=== PATIENT | male | born 1990 | race Caucasian/White ===

== ENCOUNTER 2017-06-12 16:36 | Inpatient (IN) ==
--- NOTE | 2017-06-12 17:09 | Emergency Department Note ---
Disposition Clinical Impression: Homicidal ideation Disposition: Admitted As Inpatient Forms: ED Satisfaction Letter Psych HPI - General Chief Complaint: ED Psychiatric Symptoms Stated Complaint: HI Time Seen by Provider: 06/12/17 17:07 Source: patient Mode of arrival: ambulatory Limitations: no limitations Nursing Notes Reviewed: Yes Vital Signs Reviewed: Yes - History of Present Illness Pt complaint: other (Homicidal thoughts) Onset (ago): month(s) (1) Duration: constant History of similar episodes: No Improves with: none Worsens with: none Alleged intoxication: No Associated Psychiatric Symptoms: homicidal ideation (States he was given a go back to work until his coworkers feeding quit his job) Traumatic symptoms: denies traumatic injury Treatments prior to arrival: none Self harm or harm to others: admits thoughts of harming others - Related Data Allergies Allergy/AdvReac Type Severity Reaction Status Date / Time sulfamethoxazole Allergy Hives Verified 06/12/17 16:39 [From Bactrim] trimethoprim [From Bactrim] Allergy Hives Verified 06/12/17 16:39 All systems ED: reviewed and negative except as stated. Constitutional: Denies: fever, chills Cardiovascular: Denies: chest pain Gastrointestinal: Denies: nausea, vomiting Past Medical History - Past Medical History Source: patient, obtained from family, nursing notes reviewed Medical history: Reports: asthma - Social History Smoking Status: Never smoker Smokeless Tobacco Status: No Alcohol use: Reports: occasionally Drug use: Reports: none Physical Exam - General Limitations: no limitations General appearance: alert, in no apparent distress - Head Head exam: atraumatic, normocephalic, normal inspection - Eye Eye exam: Present: normal appearance, PERRL, EOMI - Expanded Eye Exam Pupils: Left: reactive - ENT ENT exam: normal exam, normal oropharynx, mucous membranes moist - Expanded ENT Exam External ear exam: Present: normal external inspection Mouth exam: Present: normal external inspection Teeth exam: Present: normal inspection Throat exam: Present: normal inspection - Neck Neck exam: Present: normal inspection, full ROM, trachea midline - Chest Chest inspection: Present: normal inspection, symmetric chest wall rise - Respiratory Respiratory exam: Present: normal lung sounds bilaterally - Cardiovascular Cardiovascular exam: Present: regular rate, normal rhythm, normal heart sounds - Abdominal Exam Abdominal exam: Present: soft, Non-Tender. Absent: tenderness, distention, guarding, rebound, rigidity - Extremities Exam Extremities exam: Present: normal inspection, full ROM. Absent: tenderness, pedal edema - Expanded Upper Extremity Exam Shoulder exam: Present: normal inspection, full ROM Arm exam: Present: normal inspection, full ROM Elbow exam: Present: normal inspection, full ROM Forearm/Wrist exam: Present: normal inspection, full ROM Hand exam: Present: normal inspection, full ROM Vascular exam: Normal: capillary refill, radial pulse - Expanded Lower Extremity Exam Hip/Pelvis exam: Present: normal inspection, full ROM Upper leg exam: Present: normal inspection, full ROM Knee exam: Present: normal inspection, full ROM Lower leg exam: Present: normal inspection, full ROM Ankle exam: Present: normal inspection, full ROM Foot/toe exam: Present: normal inspection, full ROM Neurovascular/Tendon exam: Absent: motor deficit, sensory deficit, tendon deficit - Back Exam Back exam: Present: normal inspection, full ROM. Absent: tenderness - Neurological Exam Neurological exam: Present: alert, oriented X3 - Expanded Neurological Exam Patient oriented to: Present: person, place, time Coma Scale Eye Opening: Spontaneous Coma Scale Motor Response: Obeys Commands Coma Scale Verbal Response: Oriented Coma Scale Total: 15 - Psychiatric Psychiatric exam: Present: normal affect, homicidal ideation - Skin Skin exam: Present: warm, dry, intact, normal color Course Vital Signs Temperature 97.5 F L 06/12/17 16:37 Pulse Rate 82 06/12/17 16:37 Respiratory Rate 18 06/12/17 16:37 Blood Pressure 125/82 06/12/17 16:37 O2 Sat by Pulse Oximetry 100 06/12/17 16:37 Temperature 97.5 F L 06/12/17 16:37 Pulse Rate 82 06/12/17 16:37 Respiratory Rate 18 06/12/17 16:37 Blood Pressure 125/82 06/12/17 16:37 O2 Sat by Pulse Oximetry 100 06/12/17 16:37 Oxygen Delivery Oxygen Delivery Room Air Psych - Lab Data Result diagrams: 06/12/17 18:21 06/12/17 18:21 Lab Results 06/12/17 06/12/17 06/12/17 Range/Units 17:05 17:05 18:21 WBC 9.7 (4.3-11.1) K/mcL RBC 5.52 H (4.19-5.50) M/mcL Hgb 15.7 (12.9-16.9) g/dL Hct 45.4 (37.5-50.1) % MCV 82.2 L (83.0-100.0) fL MCH 28.4 (28.0-33.3) pg MCHC 34.6 (31.6-35.5) g/dL RDW 11.9 (11.5-14.5) % Plt Count 186 (140-400) K/mcL MPV 9.6 (9.4-12.4) fL Immature Gran % 0.2 (0-4) % Seg Neutrophils % 80.0 % Lymphocytes % 13.2 % Monocytes % 5.2 % Eosinophils % 1.2 % Basophils % 0.2 % Neutrophils # 7.8 (1.6-8.9) K/mcL Lymphocytes # 1.3 (0.6-4.6) K/mcL Monocytes # 0.5 (0.0-1.3) K/mcL Eosinophils # 0.1 (0.0-0.6) K/mcL Basophils # 0.0 (0.0-0.2) K/mcL Immature Plt Fraction 3.0 (1.1-6.1) % Sodium (136-145) mEq/L Potassium (3.5-4.5) mEq/L Chloride (98-109) mEq/L Carbon Dioxide (19-29) mEq/L BUN (8-26) mg/dL Creatinine (0.72-1.25) mg/dL Est GFR ( Amer) (> 60) Est GFR (Non-Af Amer) (> 60) BUN/Creatinine Ratio (6-26) Glucose (70-99) mg/dL Calculated Osmolality (280-300) Calcium (8.6-10.8) mg/dL Urine Color Yellow (Yellow) Urine Clarity Clear (Clear) Urine pH 6.0 (5.0-8.0) pH Units Ur Specific [place] 1.017 (1.010-1.025) Urine Protein Negative (Neg-Trace) mg/dL Urine Glucose (UA) Normal (Normal) mg/dL Urine Ketones Negative (Negative) mg/dL Urine Blood Negative (Negative) Urine Nitrite Negative (Negative) Urine Bilirubin Negative (Negative) Urine Urobilinogen Normal (Normal) mg/dL Ur Leukocyte Esterase Negative (Negative) Salicylates (15-30) mg/dL Urine Opiates Screen Negative (Dxytta=793) ng/mL Acetaminophen (10-30) mcg/mL Ur Barbiturates Screen Negative (Rntxel=883) ng/mL Ur Phencyclidine Scrn Negative (Cutoff=25) ng/mL Ur Amphetamines Screen Negative (Mkwwml=9350) ng/mL U Benzodiazepines Scrn Negative (Sswkel=072) ng/mL Urine Cocaine Screen Negative (Cutoff= 300) ng/mL U Marijuana (THC) Screen Negative (Cutoff = 50) ng/mL Ethyl Alcohol (0-10) mg/dL 06/12/17 Range/Units 18:21 WBC (4.3-11.1) K/mcL RBC (4.19-5.50) M/mcL Hgb (12.9-16.9) g/dL Hct (37.5-50.1) % MCV (83.0-100.0) fL MCH (28.0-33.3) pg MCHC (31.6-35.5) g/dL RDW (11.5-14.5) % Plt Count (140-400) K/mcL MPV (9.4-12.4) fL Immature Gran % (0-4) % Seg Neutrophils % % Lymphocytes % % Monocytes % % Eosinophils % % Basophils % % Neutrophils # (1.6-8.9) K/mcL Lymphocytes # (0.6-4.6) K/mcL Monocytes # (0.0-1.3) K/mcL Eosinophils # (0.0-0.6) K/mcL Basophils # (0.0-0.2) K/mcL Immature Plt Fraction (1.1-6.1) % Sodium 142 (136-145) mEq/L Potassium 4.1 (3.5-4.5) mEq/L Chloride 105 (98-109) mEq/L Carbon Dioxide 26 (19-29) mEq/L BUN 14 (8-26) mg/dL Creatinine 1.36 H (0.72-1.25) mg/dL Est GFR ( Amer) > 60 (> 60) Est GFR (Non-Af Amer) > 60 (> 60) BUN/Creatinine Ratio 10 (6-26) Glucose 128 H (70-99) mg/dL Calculated Osmolality 296 (280-300) Calcium 9.8 (8.6-10.8) mg/dL Urine Color (Yellow) Urine Clarity (Clear) Urine pH (5.0-8.0) pH Units Ur Specific [place] (1.010-1.025) Urine Protein (Neg-Trace) mg/dL Urine Glucose (UA) (Normal) mg/dL Urine Ketones (Negative) mg/dL Urine Blood (Negative) Urine Nitrite (Negative) Urine Bilirubin (Negative) Urine Urobilinogen (Normal) mg/dL Ur Leukocyte Esterase (Negative) Salicylates < 5.0 L (15-30) mg/dL Urine Opiates Screen (Ispcow=289) ng/mL Acetaminophen < 1.0 L (10-30) mcg/mL Ur Barbiturates Screen (Jyqscs=305) ng/mL Ur Phencyclidine Scrn (Cutoff=25) ng/mL Ur Amphetamines Screen (Puijel=5460) ng/mL U Benzodiazepines Scrn (Fxwvrq=215) ng/mL Urine Cocaine Screen (Cutoff= 300) ng/mL U Marijuana (THC) Screen (Cutoff = 50) ng/mL Ethyl Alcohol < 10 (0-10) mg/dL Psychiatric Medical Clearance - Medical Clearance Checklist Medical History: No Social History Section defined Current Vitals: Last Vital Signs Temp 97.5 F L 06/12/17 16:37 Pulse 82 06/12/17 16:37 Resp 18 06/12/17 16:37 BP 125/82 06/12/17 16:37 Pulse Ox 100 06/12/17 16:37 Psychiatric Lab Panel: Drug Levels and Toxicity 06/12/17 06/12/17 17:05 18:21 Urine Opiates Screen Negative Acetaminophen < 1.0 L Ur Barbiturates Screen Negative Ur Phencyclidine Scrn Negative Ur Amphetamines Screen Negative U Benzodiazepines Scrn Negative Urine Cocaine Screen Negative U Marijuana (THC) Screen Negative Ethyl Alcohol < 10 Abnormal Labs: Abnormal lab results RBC 5.52 M/mcL (4.19-5.50) H 06/12/17 18:21 MCV 82.2 fL (83.0-100.0) L 06/12/17 18:21 Creatinine 1.36 mg/dL (0.72-1.25) H 06/12/17 18:21 Glucose 128 mg/dL (70-99) H 06/12/17 18:21 Salicylates < 5.0 mg/dL (15-30) L 06/12/17 18:21 Acetaminophen < 1.0 mcg/mL (10-30) L 06/12/17 18:21 Statement of Medical Clearance: I have evaluated the patient, reviewed diagnostic information, and certify that the patient's medical condition is sufficiently stable that transfer to the psychiatric unit does not pose a significant risk of deterioration.
[2017-06-12 17:20] LABS: Bilirubin,Urine Negative (Negative); Blood,Urine Negative (Negative); Clarity,Urine Clear (Clear); Color,Urine Yellow (Yellow); Glucose,Urine (UA) Normal (Normal); Ketones,Urine Negative (Negative); Leukocyte Esterase,Urine Negative (Negative); Nitrite,Urine Negative (Negative); Protein,Urine Negative (Neg-Trace); Specific Gravity,Urine 1.017 (1.010-1.025); Urobilinogen,Urine Normal (Normal)
[2017-06-12 17:21] LABS: Amphetamine Screen,Urine Negative ng/mL (Cutoff=1000); Barbiturate Screen,Urine Negative ng/mL (Cutoff=200); Benzodiazepines Screen,Urine Negative ng/mL (Cutoff=200); Cannabinoid Screen,Urine Negative ng/mL (Cutoff = 50); Cocaine Screen,Urine Negative ng/mL (Cutoff= 300); Opiate Screen,Urine Negative ng/mL (Cutoff=300); Phencyclidine Screen,Urine Negative ng/mL (Cutoff=25)
[2017-06-12] MEDS ORDERED: ALPRAZolam 0.5 MG TABLET PO ONE (17:35)
[2017-06-12 18:27] LABS: Basophils % 0.2 %; Eosinophils # 0.1 K/mcL (0.0-0.6); Eosinophils % 1.2 %; Hematocrit 45.4 % (37.5-50.1); Hemoglobin 15.7 g/dL (12.9-16.9); Immature Granulocytes % 0.2 % (0-4); Lymphocytes # 1.3 K/mcL (0.6-4.6); Lymphocytes % 13.2 %; Mean Corpuscular HGB Conc 34.6 g/dL (31.6-35.5); Mean Corpuscular Hemoglobin 28.4 pg (28.0-33.3); Mean Corpuscular Volume 82.2 fL (83.0-100.0); Mean Platelet Volume 9.6 fL (9.4-12.4); Monocytes # 0.5 K/mcL (0.0-1.3); Monocytes % 5.2 %; Neutrophils # 7.8 K/mcL (1.6-8.9); Platelet Count 186 K/mcL (140-400); Red Blood Count 5.52 M/mcL (4.19-5.50); Red Cell Distribution Width 11.9 % (11.5-14.5)
[2017-06-12 18:40] LABS: BUN/Creatinine Ratio 10 (6-26); Blood Urea Nitrogen 14 mg/dL (8-26); Calcium 9.8 mg/dL (8.6-10.8); Carbon Dioxide 26 mEq/L (19-29); Chloride 105 mEq/L (98-109); Glucose 128 mg/dL (70-99); Osmolality,Calculated 296 (280-300); Potassium 4.1 mEq/L (3.5-4.5); Sodium 142 mEq/L (136-145); eGFR For African Americans > 60 (> 60); eGFR For Non-African Americans > 60 (> 60)
[2017-06-12 18:43] LABS: Acetaminophen < 1.0 mcg/mL (10-30); Ethanol < 10 mg/dL (0-10); Salicylate < 5.0 mg/dL (15-30)
[2017-06-12] MEDS ORDERED: Ibuprofen 400 MG TABLET PO PRN (22:20)
[2017-06-12] MEDS ORDERED: *HR* LORazepam 2 MG/ML VIAL IM PRN (22:20)
[2017-06-12] MEDS ORDERED: Haloperidol Lactate 5 MG/ML VIAL IM PRN (22:20)
[2017-06-12] MEDS ORDERED: hydrOXYzine pamoate 25 MG CAPSULE PO PRN (22:20)
[2017-06-12] MEDS ORDERED: *HR* LORazepam 1 MG TABLET PO PRN (22:20)
[2017-06-12] MEDS ORDERED: Mag Hydrox/Al Hydrox/Simeth 30 ML UDC PO PRN (22:20)
[2017-06-12] MEDS ORDERED: MOM Conc 10 ML UD.LIQ PO PRN (22:20)
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
[2017-06-13] MEDS: traZODone 50 MG TABLET PO PRN (21:13)
[2017-06-13] MEDS: OLANZapine 5 MG TAB.RAPDIS PO SCH (21:13)
[2017-06-14] MEDS: OLANZapine 5 MG TAB.RAPDIS PO SCH ×2 (08:13→20:50)
--- NOTE | 2017-06-14 14:23 | Psychiatry Progress Note ---
Date of Encounter: 06/14/17 Time of Encounter: 14:21 Subjective Interval history: Patient seen and evaluated this morning. Patient did not seem to be in any acute distress during the evaluation. Patient reports he is doing "fair". Patient reports that he slept very well last night and reports he has been eating well he has been here at the unit. When asked patient about his homicidal ideations patient reports "I actually have not had any since I have been here". Possibility that patient is minimizing his symptoms because he reports "it is boring here". Patient reports that overall from a scale from 1- 10 with 10 being the worst he feels that he has had about 5 or 6. Patient reports that he is not having any side effects to the medication and reports that he does not feel like it is making him too tired. Patient denied any thoughts of self-harm at the time of evaluation patient has been medication compliant staff did not report any significant issues with patient. Review of Systems Psychiatric: Reports: depression, anxiety, homicidal ideation, difficulty concentrating, mood swings, panic attacks Objective: Exam Patient orientation: Yes Person, Yes Time, Yes Place, Yes Circumstance Level of alertness: Alert Patient appearance: Appropriate Behavior: nervous, anxious, guarded, suspicious Eye contact: Minimal Contact Mood description: Anxious Affect description: flat Speech pattern: Normal rate, Normal rhythm Thought process: Intact Thought content: Yes Intact Judgment: Fair Insight: Partial Results - Vital Signs Vital Signs: Temp Pulse Resp BP Pulse Ox 97.4 F L 77 18 134/87 100 06/14/17 09:00 06/14/17 09:00 06/14/17 09:00 06/14/17 09:00 06/12/17 16:37 Assessment and Plan (1) Psychosis Current visit: Yes Status: Acute Plan: Continue hospitalization, Close observation, Encourage participation in unit milieu, Group Therapy, Monitor sleep, Monitor appetite, Family/Supportive other meeting Additional Plan: start zyprexa 5 mg BID Risks, benefits, side effects, alternatives discussed w/pt: Yes Patient agreeable to treatment: Yes Qualifiers: Psychosis type: unspecified psychosis type Qualified Code(s): F29 - Unspecified psychosis not due to a substance or known physiological condition Consult Discharge Plan - Plan Referrals: NONE,PCP [Primary Care Provider] -
[2017-06-14] MEDS: traZODone 50 MG TABLET PO PRN (20:49)
[2017-06-15] MEDS: OLANZapine 5 MG TAB.RAPDIS PO SCH ×2 (09:47→21:11)
--- NOTE | 2017-06-15 15:00 | Psychiatry Progress Note ---
Date of Encounter: 06/15/17 Time of Encounter: 14:58 Subjective Interval history: Patient seen and evaluated this morning patient was asleep in his room but was cooperative with evaluation. Patient reports that he is feeling "fine". Patient reports that he has not had any homicidal ideation since he has been here and admitted discussed with patient if there is any triggers at home patient was not able to state any triggers at home with discussed with patient if it would be helpful for patient to journal to see if any of those bad thoughts were coming back up and patient was agreeable to this patient reported no issues with his current medication denied any side effects of medication sleeping and eating good. Review of Systems Psychiatric: Reports: depression, anxiety, homicidal ideation, difficulty concentrating, mood swings, panic attacks Results - Vital Signs Vital Signs: Temp Pulse Resp BP Pulse Ox 97.7 F 69 16 123/74 100 06/15/17 09:00 06/15/17 09:00 06/15/17 09:00 06/15/17 09:00 06/12/17 16:37 Assessment and Plan (1) Psychosis Current visit: Yes Status: Acute Risks, benefits, side effects, alternatives discussed w/pt: Yes Patient agreeable to treatment: Yes Qualifiers: Psychosis type: unspecified psychosis type Qualified Code(s): F29 - Unspecified psychosis not due to a substance or known physiological condition Consult Discharge Plan - Plan Referrals: [facility] [Outside] - 07/12/17 9:30 am (The above appointment is with Dr. Kent, for outpatient psychiatric assessment and medication management services. Please arrive 30 minutes early for this appointment to complete paperwork. Please bring your insurance card, Social Security card and photo ID to this appointment. If you are unable to keep this appointment, 24 hour business notice of cancellation is expected. You are also scheduled to see Rafa Newberry on 07/15/2017 at 1:00pm for mental health counseling services. These are the first available appointments. You may contact the office regularly to check for cancellations that may allow you to be seen sooner. )
[2017-06-15] MEDS: traZODone 50 MG TABLET PO PRN (21:11)
[2017-06-16] MEDS: OLANZapine 5 MG TAB.RAPDIS PO SCH ×2 (08:23→20:24)
--- NOTE | 2017-06-16 14:37 | Psychiatry Progress Note ---
Date of Encounter: 06/16/17 Time of Encounter: 14:35 Subjective Interval history: Patient seen and evaluated this morning patient was calm and cooperative with the evaluation patient was in no acute distress. Patient reports that he feels he is doing much better since being here in the hospital and if he feels that the medication has been very helpful and reports he has not had any bad thoughts since he has started the medication denies any homicidal or suicidal ideations. Patient reports that he was able to come on his own to the emergency department and got help because he knew that if he came into the hospital that he would be able to get medication [place] otherwise it was [place], couple months to get in with outpatient psychiatrist. Patient reports that he is very happy he is on medication and feels that he is doing much better with the medication that he is on at this time patient denied any depression symptoms patient denied any psychotic symptoms patient reports that he does still have some mild anxiety per reports that it is only when he is in big crowds patient reports that he he has enjoyed his time here on the unit reports he has been very friendly and talking with a lot of the staff here. Patient reports his goals are to find another job and to get a schedule going again. Patient admits asked yesterday to write in a journal to see how his thoughts were this provider looked over patient's journal and he had not read many bad entries and everything was very soothing and not threatening. Patient reports that he was on Zoloft in the past since mother had talked about this pt reports he does not feel like he needs had an reports that he feels the Zyprexa is working well for him right now. Patient is hopeful to get discharged soon this provider explained to patient that she would speak with his mother to see how she felt he was doing. Review of Systems Psychiatric: Reports: depression, anxiety, homicidal ideation, difficulty concentrating, mood swings, panic attacks Objective: Exam Patient orientation: Yes Person Level of alertness: Alert Patient appearance: Appropriate Behavior: calm Psychomotor activity: Normal Eye contact: Maintains Eye Contact Mood description: Euthymic/stable Affect description: congruent with mood Speech pattern: Normal rate, Normal rhythm, Normal tone Speech volume: Normal Thought process: Intact Thought content: Yes Intact Judgment: Fair Insight: Partial Results - Vital Signs Vital Signs: Temp Pulse Resp BP Pulse Ox 97.2 F L 73 16 116/81 100 06/16/17 09:30 06/16/17 09:30 06/16/17 09:30 06/16/17 09:30 06/12/17 16:37 Assessment and Plan (1) Psychosis Current visit: Yes Status: Acute Risks, benefits, side effects, alternatives discussed w/pt: Yes Patient agreeable to treatment: Yes Qualifiers: Psychosis type: unspecified psychosis type Qualified Code(s): F29 - Unspecified psychosis not due to a substance or known physiological condition Consult Discharge Plan - Plan Referrals: [facility] [Outside] - 07/12/17 9:30 am (The above appointment is with Dr. Kent, for outpatient psychiatric assessment and medication management services. Please arrive 30 minutes early for this appointment to complete paperwork. Please bring your insurance card, Social Security card and photo ID to this appointment. If you are unable to keep this appointment, 24 hour business notice of cancellation is expected. You are also scheduled to see Rafa Newberry on 07/15/2017 at 1:00pm for mental health counseling services. These are the first available appointments. You may contact the office regularly to check for cancellations that may allow you to be seen sooner. )
[2017-06-16] MEDS: traZODone 50 MG TABLET PO PRN (20:24)
[2017-06-17] MEDS: OLANZapine 5 MG TAB.RAPDIS PO SCH (08:34)
[2017-06-17 09:23] VITALS: BP 120/80
--- NOTE | 2017-06-17 13:15 | Discharge Summary ---
Date of Encounter: 06/17/17 Time of Encounter: 13:13 Diagnosis - Discharge Diagnosis (1) Psychosis Status: Resolved Qualifiers: Psychosis type: unspecified psychosis type Qualified Code(s): F29 - Unspecified psychosis not due to a substance or known physiological condition Medications - Discharge Medications Prescriptions: Benztropine [Cogentin] 1 mg PO DAILY #30 tab OLANZapine [Zyprexa Zydis] 5 mg PO BID #60 traZODone [TraZODone] 50 mg PO HS PRN #30 tab PRN Reason: Insomnia Benztropine [Cogentin] 1 mg PO DAILY #30 tab 06/17/17 [Rx] OLANZapine [Zyprexa Zydis] 5 mg PO BID #60 06/17/17 [Rx] traZODone [TraZODone] 50 mg PO HS PRN #30 tab 06/17/17 [Rx] 3 Allergy/AdvReac Type Severity Reaction Status Date / Time sulfamethoxazole Allergy Hives Verified 06/12/17 16:39 [From Bactrim] trimethoprim [From Bactrim] Allergy Hives Verified 06/12/17 16:39 Provider Date of admission: 06/12/17 21:35 Primary care physician: PCP NONE Discharging clinician: Yennifer Ugalde Assessment and Plan - Patient/Caregiver Discharge Instructions Activity: resume usual activities as tolerated, return to work Diet: regular diet - Follow up Plan Follow up with: [facility] [Outside] - 07/12/17 9:30 am (The above appointment is with Dr. Kent, for outpatient psychiatric assessment and medication management services. Please arrive 30 minutes early for this appointment to complete paperwork. Please bring your insurance card, Social Security card and photo ID to this appointment. If you are unable to keep this appointment, 24 hour business notice of cancellation is expected. You are also scheduled to see Rafa Newberry on 07/15/2017 at 1:00pm for mental health counseling services. These are the first available appointments. You may contact the office daily to check for cancellations that may allow you to be seen sooner. You may also walk-in to the clinic anytime during regular business hours to be seen on crisis.) Overall status at discharge: Stable Disposition: Home, Self-Care Hospital Course Hospital course: Mr. Orozco is a 26 year old male who was admitted to the inpatient psychiatric unit for safety and stabilization due to patient having homicidal ideations not directed towards any particular person. Patient's home medications were continued and reviewed. Throughout the hospital coursept was started on zyprexa and cognetin and trazodone while in hospital after a day and a half for medication patient reports that he felt the Zyprexa was really helping with his thoughts he reports that since starting the medication he did not have any bad thoughts or homicidal ideations. Patient also reports that he brought himself voluntarily into the hospital because he knew that he needed help he also reports he knew that if he came into the hospital he would get on medication faster and that he would get it an outpatient appointment faster. Patient reports being grateful that he came to the hospital and that he got on medication and reports he he plans on continuing the Zyprexa because he feels that is helping him a lot. Patient did not exhibit any side effects to medication he was med compliant while he was on the unit patient participated in groups and was socializing with peers. Patient's sleep and appetite was fair. Patient denied any suicide or homicide ideations. Patient denied any thoughts of self-harm. Patient reports being interested in outpatient medication management and counseling. Patient was discussed for discharge due to patient not being a threat to himself or anyone else. 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 Patient will be returning home on discharge. Time spent discussing smoking cessation with patient: 3 to 10 minutes Does patient wish to continue nicotine replacement upon disc: No - Time Spent with Patient Total time spent providing and/or coordinating discharge services: Less than 30 minutes Quality - Multiple Antipsychotics Patient discharged on 2 or more antipsychotic medications: No Procedures - Procedures Procedures: Medication Management, Crisis Stabilization, Supportive Therapy, Group Therapy, Psychoeducational Therapy Mental Status Exam - Mental Status Exam Patient orientation: Yes Person, Yes Time, Yes Place, Yes Circumstance Level of alertness: Alert Patient appearance: Appropriate Psychomotor activity: Normal Eye contact: Maintains Eye Contact Mood description: Euthymic/stable Affect description: congruent with mood Speech pattern: Normal rate, Normal rhythm, Normal tone Speech Volume: Normal Thought process: Intact Thought Content: Yes Intact Judgment: Fair Insight: Full
== END 2017-06-17 15:00 | disposition home or self-care (01) | DRG 885 ==
LOC: EMEROO 16:36 → 1ANU 21:35
PROVIDERS: ADMIT Psychiatry & Neurology Psychiatry; ATTEND Psychiatry & Neurology Psychiatry

== ENCOUNTER 2017-10-25 14:02 | Inpatient (IN) ==
[2017-10-25] MEDS ORDERED: *HR* LORazepam 1 MG TABLET PO ONE (14:35)
--- NOTE | 2017-10-25 14:40 | Emergency Department Note ---
Disposition Clinical Impression: Suicidal ideation, Homicidal ideation Depression Qualifiers: Depression Type: unspecified Qualified Code(s): F32.9 - Major depressive disorder, single episode, unspecified Disposition: Admitted As Inpatient Condition: Fair Referrals: NONE,PCP [Primary Care Provider] - Forms: ED Satisfaction Letter Psych HPI - General Chief Complaint: ED Psychiatric Symptoms Stated Complaint: psych eval Time Seen by Provider: 10/25/17 14:35 Source: patient Nursing Notes Reviewed: Yes Vital Signs Reviewed: Yes - History of Present Illness HPI Narrative: 27-year-old male presents to the emergency department with suicidal and homicidal ideation. Patient says he has been getting worsening depression because he cannot hold a job down and he feels like he just wants to hurt himself and other people. He does not specify a plan. He says he is a cutter and has had that issue in the past. He denies fevers chills chest pain shortness of breath or other such complaints. He says been taking his psychiatric medications as prescribed. Patient also notes he has had visual and auditory hallucinations in the past about this episode. Pt complaint: suicidal ideation, feels depressed, medical clearance request If medical clearance, reason: psychiatric condition Onset (ago): day(s) Duration: constant History of similar episodes: Yes Improves with: none Worsens with: none Alleged intoxication: No Associated Psychiatric Symptoms: depression, suicidal ideation, homicidal ideation Associated symptoms: Reports: denies other symptoms Treatments prior to arrival: none Self harm or harm to others: admits thoughts of self harm, admits thoughts of harming others, denies having a plan - Related Data Previous Rx's Medication Instructions Recorded Benztropine [Cogentin] 1 mg PO DAILY #30 tab 06/17/17 OLANZapine [Zyprexa Zydis] 5 mg PO BID #60 06/17/17 traZODone [TraZODone] 50 mg PO HS PRN #30 tab 06/17/17 Allergies Allergy/AdvReac Type Severity Reaction Status Date / Time sulfamethoxazole Allergy Hives Verified 10/25/17 14:14 [From Bactrim] trimethoprim [From Bactrim] Allergy Hives Verified 10/25/17 14:14 All systems ED: reviewed and negative except as stated. Constitutional: Reports: as per HPI Eyes: Reports: as per HPI ENT ED: Reports: as per HPI Cardiovascular: Reports: as per HPI Respiratory: Reports: as per HPI Gastrointestinal: Reports: as per HPI Past Medical History - Past Medical History Attestation: Yes The following information was validated with the patient. Medical history: Reports: asthma Psychiatric history: Reports: anxiety, bipolar, panic disorder, PTSD, previous psychiatric hospitalization - Social History Smoking Status: Never smoker Smokeless Tobacco Status: No Alcohol use: Reports: none Drug use: Reports: none Physical Exam - General Limitations: no limitations General appearance: alert, in no apparent distress - Head Head exam: atraumatic - Eye Eye exam: Present: normal appearance - ENT ENT exam: normal exam, normal oropharynx - Neck Neck exam: Present: normal inspection, full ROM - Chest Chest inspection: Present: normal inspection - Respiratory Respiratory exam: Present: normal lung sounds bilaterally - Cardiovascular Cardiovascular exam: Present: regular rate, normal rhythm - Abdominal Exam Abdominal exam: Present: soft, Non-Tender - Extremities Exam Extremities exam: Present: normal inspection - Expanded Lower Extremity Exam Hip/Pelvis exam: Present: normal inspection - Neurological Exam Neurological exam: Present: alert, oriented X3 - Psychiatric Psychiatric exam: Present: depressed, anxious, flat affect, homicidal ideation, suicidal ideation - Skin Skin exam: Present: warm, dry, intact Course Vital Signs Temperature 98.8 F 10/25/17 14:11 Pulse Rate 100 10/25/17 14:11 Respiratory Rate 16 10/25/17 14:11 Blood Pressure 151/89 10/25/17 14:11 O2 Sat by Pulse Oximetry 98 10/25/17 14:11 Temperature 98.8 F 10/25/17 14:11 Pulse Rate 100 10/25/17 14:11 Respiratory Rate 16 10/25/17 14:11 Blood Pressure 151/89 10/25/17 14:11 O2 Sat by Pulse Oximetry 98 10/25/17 14:11 Oxygen Delivery Oxygen Delivery Room Air Psych - MDM Narrative Medical decision making narrative: We will do usual medical clearance for psychiatric department and will contact [facility]. He says he has been admitted there before. When evaluated patient and agreed to accept him as a patient here in the hospital. He was cleared for psychiatric treatment. - Lab Data Lab results reviewed: Yes I reviewed the patient's lab results. Result diagrams: 10/25/17 14:48 10/25/17 14:48 Lab Results 01/06/0410/25/17 10/25/17 Range/Units 14:43 14:43 14:48 WBC 8.4 (4.3-11.1) K/mcL RBC 5.49 (4.19-5.50) M/mcL Hgb 15.6 (12.9-16.9) g/dL Hct 44.7 (37.5-50.1) % MCV 81.4 L (83.0-100.0) fL MCH 28.4 (28.0-33.3) pg MCHC 34.9 (31.6-35.5) g/dL RDW 12.1 (11.5-14.5) % Plt Count 183 (140-400) K/mcL MPV 9.8 (9.4-12.4) fL Immature Gran % 0.1 (0-4) % Seg Neutrophils % 74.8 % Lymphocytes % 17.8 % Monocytes % 6.4 % Eosinophils % 0.8 % Basophils % 0.1 % Neutrophils # 6.3 (1.6-8.9) K/mcL Lymphocytes # 1.5 (0.6-4.6) K/mcL Monocytes # 0.5 (0.0-1.3) K/mcL Eosinophils # 0.1 (0.0-0.6) K/mcL Basophils # 0.0 (0.0-0.2) K/mcL Sodium (136-145) mEq/L Potassium (3.5-5.1) mEq/L Chloride (98-107) mEq/L Carbon Dioxide (23-29) mEq/L BUN (6-20) mg/dL Creatinine (0.70-1.30) mg/dL Est GFR ( Amer) (> 60) Est GFR (Non-Af Amer) (> 60) BUN/Creatinine Ratio (6-26) Glucose (70-105) mg/dL Calculated Osmolality (280-300) Calcium (8.6-10.3) mg/dL Urine Color Yellow (Yellow) Urine Clarity Clear (Clear) Urine pH 6.0 (5.0-8.0) pH Units Ur Specific [place] 1.023 (1.010-1.025) Urine Protein Negative (Neg-Trace) mg/dL Urine Glucose (UA) Normal (Normal) mg/dL Urine Ketones Negative (Negative) mg/dL Urine Blood Negative (Negative) Urine Nitrite Negative (Negative) Urine Bilirubin Negative (Negative) Urine Urobilinogen Normal (Normal) mg/dL Ur Leukocyte Esterase Negative (Negative) Ur Culture Indicated? NO (NO) Salicylates (15.0-30.0) mg/dL Urine Opiates Screen Negative (Dmwhst=908) ng/mL Acetaminophen (10-30) mcg/mL Ur Barbiturates Screen Negative (Dldkbq=482) ng/mL Ur Phencyclidine Scrn Negative (Cutoff=25) ng/mL Ur Amphetamines Screen Negative (Jpiaci=1191) ng/mL U Benzodiazepines Scrn Negative (Agpujv=172) ng/mL Urine Cocaine Screen Negative (Cutoff= 300) ng/mL U Marijuana (THC) Screen Negative (Cutoff = 50) ng/mL Ethyl Alcohol (0-10) mg/dL 10/25/17 Range/Units 14:48 WBC (4.3-11.1) K/mcL RBC (4.19-5.50) M/mcL Hgb (12.9-16.9) g/dL Hct (37.5-50.1) % MCV (83.0-100.0) fL MCH (28.0-33.3) pg MCHC (31.6-35.5) g/dL RDW (11.5-14.5) % Plt Count (140-400) K/mcL MPV (9.4-12.4) fL Immature Gran % (0-4) % Seg Neutrophils % % Lymphocytes % % Monocytes % % Eosinophils % % Basophils % % Neutrophils # (1.6-8.9) K/mcL Lymphocytes # (0.6-4.6) K/mcL Monocytes # (0.0-1.3) K/mcL Eosinophils # (0.0-0.6) K/mcL Basophils # (0.0-0.2) K/mcL Sodium 140 (136-145) mEq/L Potassium 3.7 (3.5-5.1) mEq/L Chloride 105 (98-107) mEq/L Carbon Dioxide 27 (23-29) mEq/L BUN 17 (6-20) mg/dL Creatinine 1.30 (0.70-1.30) mg/dL Est GFR ( Amer) > 60 (> 60) Est GFR (Non-Af Amer) > 60 (> 60) BUN/Creatinine Ratio 13 (6-26) Glucose 90 (70-105) mg/dL Calculated Osmolality 291 (280-300) Calcium 9.7 (8.6-10.3) mg/dL Urine Color (Yellow) Urine Clarity (Clear) Urine pH (5.0-8.0) pH Units Ur Specific [place] (1.010-1.025) Urine Protein (Neg-Trace) mg/dL Urine Glucose (UA) (Normal) mg/dL Urine Ketones (Negative) mg/dL Urine Blood (Negative) Urine Nitrite (Negative) Urine Bilirubin (Negative) Urine Urobilinogen (Normal) mg/dL Ur Leukocyte Esterase (Negative) Ur Culture Indicated? (NO) Salicylates < 5.0 L (15.0-30.0) mg/dL Urine Opiates Screen (Spqrpr=176) ng/mL Acetaminophen < 1.0 L (10-30) mcg/mL Ur Barbiturates Screen (Vmjcnq=460) ng/mL Ur Phencyclidine Scrn (Cutoff=25) ng/mL Ur Amphetamines Screen (Zvhhfe=7025) ng/mL U Benzodiazepines Scrn (Byuhlb=070) ng/mL Urine Cocaine Screen (Cutoff= 300) ng/mL U Marijuana (THC) Screen (Cutoff = 50) ng/mL Ethyl Alcohol < 10 (0-10) mg/dL Psychiatric Medical Clearance - Medical Clearance Checklist Does the patient have a NEW psychiatric condition?: No Any abnormalities indicating possible medical illness?: No Any history of medical issues?: No Medical History: Homicidal ideation (Acute) Psychosis (Resolved) Depression (Acute) Suicidal ideation (Acute) No Social History Section defined Any abnormal vital signs prior to transfer?: No Current Vitals: Last Vital Signs Temp 98.8 F 10/25/17 14:11 Pulse 100 10/25/17 14:11 Resp 16 10/25/17 14:11 BP 151/89 10/25/17 14:11 Pulse Ox 98 10/25/17 14:11 Is the patient intoxicated or cognitively impaired?: No Psychiatric Lab Panel: Drug Levels and Toxicity 10/25/17 10/25/17 14:43 14:48 Urine Opiates Screen Negative Acetaminophen < 1.0 L Ur Barbiturates Screen Negative Ur Phencyclidine Scrn Negative Ur Amphetamines Screen Negative U Benzodiazepines Scrn Negative Urine Cocaine Screen Negative U Marijuana (THC) Screen Negative Ethyl Alcohol < 10 Any abnormalities on the physical exam?: No Any abnormal labs?: No Abnormal Labs: Abnormal lab results MCV 81.4 fL (83.0-100.0) L 10/25/17 14:48 Salicylates < 5.0 mg/dL (15.0-30.0) L 10/25/17 14:48 Acetaminophen < 1.0 mcg/mL (10-30) L 10/25/17 14:48 Does the patient require durable medical equiptment?: No Is the patient ambulatory?: Yes Is the patient a fall risk?: No Any acute medical condition require Tx prior to transfer?: Yes Statement of Medical Clearance: I have evaluated the patient, reviewed diagnostic information, and certify that the patient's medical condition is sufficiently stable that transfer to the psychiatric unit does not pose a significant risk of deterioration.
[2017-10-25 14:53] LABS: Bilirubin,Urine Negative (Negative); Blood,Urine Negative (Negative); Clarity,Urine Clear (Clear); Color,Urine Yellow (Yellow); Glucose,Urine (UA) Normal (Normal); Ketones,Urine Negative (Negative); Leukocyte Esterase,Urine Negative (Negative); Nitrite,Urine Negative (Negative); Protein,Urine Negative (Neg-Trace); Specific Gravity,Urine 1.023 (1.010-1.025); Urobilinogen,Urine Normal (Normal)
[2017-10-25 14:56] LABS: Basophils % 0.1 %; Eosinophils # 0.1 K/mcL (0.0-0.6); Eosinophils % 0.8 %; Hematocrit 44.7 % (37.5-50.1); Hemoglobin 15.6 g/dL (12.9-16.9); Immature Granulocytes % 0.1 % (0-4); Lymphocytes # 1.5 K/mcL (0.6-4.6); Lymphocytes % 17.8 %; Mean Corpuscular HGB Conc 34.9 g/dL (31.6-35.5); Mean Corpuscular Hemoglobin 28.4 pg (28.0-33.3); Mean Corpuscular Volume 81.4 fL (83.0-100.0); Mean Platelet Volume 9.8 fL (9.4-12.4); Monocytes # 0.5 K/mcL (0.0-1.3); Monocytes % 6.4 %; Neutrophils # 6.3 K/mcL (1.6-8.9); Platelet Count 183 K/mcL (140-400); Red Blood Count 5.49 M/mcL (4.19-5.50); Red Cell Distribution Width 12.1 % (11.5-14.5); Segmented Neutrophils % 74.8 %
[2017-10-25 15:03] LABS: Amphetamine Screen,Urine Negative ng/mL (Cutoff=1000); Barbiturate Screen,Urine Negative ng/mL (Cutoff=200); Benzodiazepines Screen,Urine Negative ng/mL (Cutoff=200); Cannabinoid Screen,Urine Negative ng/mL (Cutoff = 50); Cocaine Screen,Urine Negative ng/mL (Cutoff= 300); Opiate Screen,Urine Negative ng/mL (Cutoff=300); Phencyclidine Screen,Urine Negative ng/mL (Cutoff=25)
[2017-10-25 15:10] LABS: Acetaminophen < 1.0 mcg/mL (10-30); Ethanol < 10 mg/dL (0-10); Salicylate < 5.0 mg/dL (15.0-30.0)
[2017-10-25 15:11] LABS: BUN/Creatinine Ratio 13 (6-26); Blood Urea Nitrogen 17 mg/dL (6-20); Calcium 9.7 mg/dL (8.6-10.3); Carbon Dioxide 27 mEq/L (23-29); Chloride 105 mEq/L (98-107); Glucose 90 mg/dL (70-105); Osmolality,Calculated 291 (280-300); Potassium 3.7 mEq/L (3.5-5.1); Sodium 140 mEq/L (136-145); eGFR For African Americans > 60 (> 60); eGFR For Non-African Americans > 60 (> 60)
[2017-10-25] MEDS ORDERED: Ibuprofen 400 MG TABLET PO PRN (18:35)
[2017-10-25] MEDS ORDERED: Mag Hydrox/Al Hydrox/Simeth 30 ML UDC PO PRN (18:35)
[2017-10-25] MEDS ORDERED: *HR* LORazepam 2 MG/ML VIAL IM PRN (18:35)
[2017-10-25] MEDS ORDERED: *HR* LORazepam 1 MG TABLET PO PRN (18:35)
[2017-10-25] MEDS ORDERED: hydrOXYzine pamoate 25 MG CAPSULE PO PRN (18:35)
[2017-10-25] MEDS ORDERED: Haloperidol Lactate 5 MG/ML VIAL IM PRN (18:35)
[2017-10-25] MEDS ORDERED: MOM Conc 10 ML UD.LIQ PO PRN (18:35)
[2017-10-25] MEDS: OLANZapine 5 MG TAB.RAPDIS PO SCH (21:37)
[2017-10-25] MEDS: traZODone 50 MG TABLET PO PRN (21:37)
[2017-10-26] MEDS: OLANZapine 5 MG TAB.RAPDIS PO SCH (09:09)
--- NOTE | 2017-10-26 12:42 | Psychiatry History & Physical ---
Date of Encounter: 10/26/17 Time of Encounter: 12:25 History of Present Illness Patient Stated Chief Complaint: "I'm homicidal and suicidal cause I can't hold a job" Medicare Admission Attestation: For traditional Medicare patients the provided hospital inpatient services are reasonable and necessary and in the case of services not specified as inpatient -only under 42 CFR 419.22 (n), that they are appropriately provided as inpatient services in accordance 42 CFR 412.3. For Critical Access Hospital the patient may reasonably be expected to be discharged or transferred to a hospital within 96 hours after admission to the Critical Access Hospital. Admitted From: Emergency Dept Plans for Post Hospital Care: Home History of Present Illness: Mr. Orozco is a 27 year old male who was admitted via the emergency department secondary to depression and having homicidal and suicidal thoughts. Patient denies any active plans to kill himself or to kill other people, but has vivid thoughts about people he could kill and how he could kill them. No specific person, but sees people and has these pervasive thoughts. He states is been getting worse in the last month to 6 weeks. He states his depression is getting worse as he cannot find a job that he can sustain. He states he has started to have financial problems and can't make his car payment. 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 He feels sad and isolates most of the time, not interacting or communicating with other people. He hears whispers telling him to kill people. This occurs especially when he is out in crowds with people all around him. He visualizes people dying and how he would kill them if he were the one bringing about their . He denies any visual hallucinations. He has issues with anxiety over the stress of his finances. He has no issues with impulsivity,gambling, staying up for days and days without sleep or need for sleep. He does not acknowledge or admit to reading other people's minds or any type of telepathy. He states the Zyprexa has helped him some, but in the last couple weeks, it is not help him as much as it used to. He states he has been on antidepressants in the past. Those antidepressant included Paxil, Zoloft, Celexa. He felt that the Paxil might have helped some, but is not sure. He has no active plans to kill himself or anybody else at this time. Past Med Surg Social Fam HX - Past Medical History Medical history: asthma - Past Psychiatric History Psychiatric history: Reports: prior suicide attempt (Put a gun to his head years ago but never pulled the trigger. ), previous psychiatric hospitalization , other (psychosis) Past psychiatric history details: Patient was admitted to in May 2017 for similar issues. He is a client at [facility]. Family psychiatric history: Yes (Father and brother, not sure what the Dx is) Family History of Suicide: None - Social History Smoking Status: Never smoker Smokeless Tobacco Status: No Alcohol use: none Drug use: none Occupational status: previously employed (He is having a difficult time " holding down a job" secondary to his anxiety) Current living situation: Home, With Family (in [place]) Activity Level: Independent ambulation Recent Out of Country Travel Within the Last 8 Weeks: No Exposure or Possible Exposure to Illness During Travel: No Medications & Allergies Benztropine [Cogentin] 1 mg PO DAILY #30 tab 06/17/17 [Rx] OLANZapine [Zyprexa Zydis] 5 mg PO BID #60 06/17/17 [Rx] Buspirone HCl [Buspar] 5 mg PO TID 10/25/17 [History] 3 Allergy/AdvReac Type Severity Reaction Status Date / Time sulfamethoxazole Allergy Hives Verified 10/25/17 14:14 [From Bactrim] trimethoprim [From Bactrim] Allergy Hives Verified 10/25/17 14:14 Mental Status Exam Patient orientation: Yes Person, Yes Time, Yes Place, Yes Circumstance Level of alertness: Alert Patient appearance: Appropriate Behavior: calm Psychomotor activity: Normal Eye contact: Maintains Eye Contact Mood description: Depressed Affect description: blunted Speech pattern: Normal rate, Normal rhythm, Monotone Speech volume: Normal Thought process: Slowed Thinking Thought content: Yes Suicidal ideation, Yes Homicidal ideation, Yes Preoccupation (with of others) Attention span: Capable of Focused Attention Memory description: Grossly Intact Patient reliability: Questionable Historian Intelligence estimate: Average Judgment: Fair Insight: Partial Exam - HEENT Head exam IM: Present: normocephalic Results - Vital Signs Vital signs: Temp Pulse Resp BP Pulse Ox 97.7 F 93 16 134/93 98 10/26/17 09:00 10/26/17 09:00 10/26/17 09:00 10/26/17 09:00 10/25/17 14:11 - Labs Labs: Laboratory Last Values WBC 8.4 K/mcL (4.3-11.1) 10/25/17 14:48 RBC 5.49 M/mcL (4.19-5.50) 10/25/17 14:48 Hgb 15.6 g/dL (12.9-16.9) 10/25/17 14:48 Hct 44.7 % (37.5-50.1) 10/25/17 14:48 MCV 81.4 fL (83.0-100.0) L 10/25/17 14:48 MCH 28.4 pg (28.0-33.3) 10/25/17 14:48 MCHC 34.9 g/dL (31.6-35.5) 10/25/17 14:48 RDW 12.1 % (11.5-14.5) 10/25/17 14:48 Plt Count 183 K/mcL (140-400) 10/25/17 14:48 MPV 9.8 fL (9.4-12.4) 10/25/17 14:48 Immature Gran % 0.1 % (0-4) 10/25/17 14:48 Seg Neutrophils % 74.8 % 10/25/17 14:48 Lymphocytes % 17.8 % 10/25/17 14:48 Monocytes % 6.4 % 10/25/17 14:48 Eosinophils % 0.8 % 10/25/17 14:48 Basophils % 0.1 % 10/25/17 14:48 Neutrophils # 6.3 K/mcL (1.6-8.9) 10/25/17 14:48 Lymphocytes # 1.5 K/mcL (0.6-4.6) 10/25/17 14:48 Monocytes # 0.5 K/mcL (0.0-1.3) 10/25/17 14:48 Eosinophils # 0.1 K/mcL (0.0-0.6) 10/25/17 14:48 Basophils # 0.0 K/mcL (0.0-0.2) 10/25/17 14:48 Sodium 140 mEq/L (136-145) 10/25/17 14:48 Potassium 3.7 mEq/L (3.5-5.1) 10/25/17 14:48 Chloride 105 mEq/L (98-107) 10/25/17 14:48 Carbon Dioxide 27 mEq/L (23-29) 10/25/17 14:48 BUN 17 mg/dL (6-20) 10/25/17 14:48 Creatinine 1.30 mg/dL (0.70-1.30) 10/25/17 14:48 Est GFR ( Amer) > 60 (> 60) 10/25/17 14:48 Est GFR (Non-Af Amer) > 60 (> 60) 10/25/17 14:48 BUN/Creatinine Ratio 13 (6-26) 10/25/17 14:48 Glucose 90 mg/dL (70-105) 10/25/17 14:48 Calculated Osmolality 291 (280-300) 10/25/17 14:48 Calcium 9.7 mg/dL (8.6-10.3) 10/25/17 14:48 Urine Color Yellow (Yellow) 10/25/17 14:43 Urine Clarity Clear (Clear) 10/25/17 14:43 Urine pH 6.0 pH Units (5.0-8.0) 10/25/17 14:43 Ur Specific [place] 1.023 (1.010-1.025) 10/25/17 14:43 Urine Protein Negative mg/dL (Neg-Trace) 10/25/17 14:43 Urine Glucose (UA) Normal mg/dL (Normal) 10/25/17 14:43 Urine Ketones Negative mg/dL (Negative) 10/25/17 14:43 Urine Blood Negative (Negative) 10/25/17 14:43 Urine Nitrite Negative (Negative) 10/25/17 14:43 Urine Bilirubin Negative (Negative) 10/25/17 14:43 Urine Urobilinogen Normal mg/dL (Normal) 10/25/17 14:43 Ur Leukocyte Esterase Negative (Negative) 10/25/17 14:43 Ur Culture Indicated? NO (NO) 10/25/17 14:43 Salicylates < 5.0 mg/dL (15.0-30.0) L 10/25/17 14:48 Urine Opiates Screen Negative ng/mL (Uckdth=945) 10/25/17 14:43 Acetaminophen < 1.0 mcg/mL (10-30) L 10/25/17 14:48 Ur Barbiturates Screen Negative ng/mL (Xjezws=610) 10/25/17 14:43 Ur Phencyclidine Scrn Negative ng/mL (Cutoff=25) 10/25/17 14:43 Ur Amphetamines Screen Negative ng/mL (Dwnwgg=0809) 10/25/17 14:43 U Benzodiazepines Scrn Negative ng/mL (Tdjxma=094) 10/25/17 14:43 Urine Cocaine Screen Negative ng/mL (Cutoff= 300) 10/25/17 14:43 U Marijuana (THC) Screen Negative ng/mL (Cutoff = 50) 10/25/17 14:43 Ethyl Alcohol < 10 mg/dL (0-10) 10/25/17 14:48 Assessment and Plan (1) Psychosis Current visit: Yes Status: Resolved Plan: Admit inpatient for safety and stabilization, Close observation, Suicide Precautions per unit protocol, Encourage participation in unit milieu, Group Therapy, Monitor sleep, Monitor appetite Risks, benefits, side effects, alternatives discussed w/pt: Yes (Increase his eveing Zyprexa to 10 mg targeting his psychotic thought) Patient agreeable to treatment: Yes Plans for Post Hospital Care: Home Estimated Length of Stay (Days): 5
[2017-10-26] MEDS: OLANZapine 10 MG TAB.RAPDIS PO SCH (20:45)
[2017-10-27] MEDS: OLANZapine 5 MG TAB.RAPDIS PO SCH (09:32)
--- NOTE | 2017-10-27 15:24 | Psychiatry Progress Note ---
Date of Encounter: 10/27/17 Time of Encounter: 15:15 Subjective Interval history: Patient tells me "I am doing all right. How are you doing". He explains to me that the increased dose Zyprexa at night, he believes, helped with the voices. He states they are much less intrusive. Right now he is not hearing anything. He states that he slept well at 12 hours and does not feel too tired today. He is still having some thoughts of but it is less. He is feeling more relaxed and less anxious; that in turn makes him feel less pessimistic and less depressed. He wants to continue to see how the medication works over the next couple days and see how his mood is stabilized on the medication. He denies any issues on the unit and he is trying to go to groups. Objective: Exam Patient orientation: Yes Person, Yes Place, Yes Circumstance Level of alertness: Alert Patient appearance: Well Groomed Behavior: anxious, guarded Psychomotor activity: Slowed Eye contact: Fleeting Contact Mood description: Depressed Affect description: blunted, flat Speech pattern: Normal rate, Normal rhythm, Other (tone is off as he has no inflection in his speech.) Speech volume: Soft/Quiet Thought process: Perseveration (less perseverative today on ) Thought content: Yes Suicidal ideation, Yes Homicidal ideation, Yes Preoccupation (with murder and ) Perceptual disturbances: Yes Auditory hallucinations Judgment: Limited Insight: Partial Results - Vital Signs Vital Signs: Temp Pulse Resp BP Pulse Ox 97.8 F 70 16 122/89 98 10/27/17 09:00 10/27/17 09:00 10/27/17 09:00 10/27/17 09:00 10/25/17 14:11 Assessment and Plan (1) Psychosis Current visit: Yes Status: Resolved Plan: Continue hospitalization, Close observation, Suicide Precautions per unit protocol, Encourage participation in unit milieu, Group Therapy, Monitor sleep Risks, benefits, side effects, alternatives discussed w/pt: Yes (Continue medication as ordered) Patient agreeable to treatment: Yes Qualifiers: Psychosis type: unspecified psychosis type Qualified Code(s): F29 - Unspecified psychosis not due to a substance or known physiological condition Consult Discharge Plan - Plan Referrals: [facility] [Outside] [facility] [Outside] - 11/23/17 4:15 pm (The above appointment is with for outpatient psychiatric assessment and medication management services. Please arrive 15 minutes early to complete paperwork. Please bring your insurance card, photo ID and medications in their original bottles. If you do not have insurance, bring proof of income to apply for the sliding fee scale. If you are unable to keep this appointment, 24 hour business notice of cancellation is expected. The above appointment(s) reflects first availability. You may contact the office regularly to check for cancellations that may allow you to be seen sooner.)
[2017-10-27] MEDS: OLANZapine 10 MG TAB.RAPDIS PO SCH (20:44)
[2017-10-27] MEDS: traZODone 50 MG TABLET PO PRN (20:45)
[2017-10-28] MEDS: OLANZapine 5 MG TAB.RAPDIS PO SCH (08:53)
--- NOTE | 2017-10-28 16:50 | Psychiatry Progress Note ---
Date of Encounter: 10/28/17 Time of Encounter: 16:40 Subjective Interval history: Patient tells me that he slept really well again last night. He states he is feeling much less anxious and depressed and feels the medication adjustment is working well. He denies any side effects of the medication. He is able to focus fine throughout the day in groups and better able to communicate with staff and peers. He states that he had a visit with his family and it went well. He states his depression is improving but he still has problems with anxiety. He states this occurs mostly when he is at work and in social situations. This contributes to him getting frustrated and overwhelmed and ultimately quitting or being fired. His energy and interest is improving. He states that is more focused on the future and denies having any suicidal or homicidal ideation. He discussed with me feeling awkward and socially like he "does not fit in" in most of life's situations. This is what makes it worse when he is at work and gets very anxious and is unable to cope with the stress at work around others. He denies any auditory or visual hallucinations. He has denies any visualizations of seeing people or people being murdered. He states his mind is much calmer is better able to focus and be around people in is more socially comfortable. Addendum: I called his mother after I sat down and talked with the patient. His mother states that she feels he is doing better and he is more back to baseline. She feels he is much better to return home safely. We talked about the possibility that he has also a diagnosis on the autism spectrum disorder. She has been unable to get him evaluated/tested. I told her I would talk to the social research assistant and try and find somebody to do further evaluations and testing on him. There is discussion of potentially applying for social security disability secondary to his inability to work and his financial issues. We also discussed diagnosis. He has psychotic symptoms which appear to be related to when he gets severely depressed. He currently has a diagnosis of psychosis. The psychosis disappears when he is feeling less depressed. I will put a rule out diagnosis of Major Depressive Disorder, recurrent, severe with psychotic features as a provisional rule out diagnosis. Objective: Exam Patient orientation: Yes Person, Yes Time, Yes Place Level of alertness: Alert Patient appearance: Appropriate, Well Groomed Behavior: cooperative, anxious (less ) Psychomotor activity: Normal Eye contact: Maintains Eye Contact Mood description: Euthymic/stable Affect description: congruent with mood Speech pattern: Normal rate, Normal rhythm, Normal tone, Other (His speech is still without emotion, but less quivering in his voice.) Speech volume: Normal Thought process: Goal Oriented Thought content: Yes Intact, Yes Preoccupation (no preoccupation with ) Judgment: Fair Insight: Partial Results - Vital Signs Vital Signs: Temp Pulse Resp BP Pulse Ox 98.1 F 96 16 117/86 98 10/28/17 10:56 10/28/17 10:56 10/28/17 10:56 10/28/17 10:56 10/25/17 14:11 Assessment and Plan (1) Psychosis Current visit: Yes Status: Resolved Plan: Continue hospitalization, Close observation, Suicide Precautions per unit protocol, Encourage participation in unit milieu, Group Therapy, Monitor sleep Risks, benefits, side effects, alternatives discussed w/pt: Yes (Continue zyprexa as written) Patient agreeable to treatment: Yes Qualifiers: Psychosis type: unspecified psychosis type Qualified Code(s): F29 - Unspecified psychosis not due to a substance or known physiological condition (2) Major depressive disorder, recurrent, severe with psychotic features Current visit: Yes Status: Acute Plan: Continue hospitalization, Close observation, Suicide Precautions per unit protocol, Encourage participation in unit milieu, Group Therapy, Monitor sleep Risks, benefits, side effects, alternatives discussed w/pt: Yes (Provisional diagnosis.) Consult Discharge Plan - Plan Referrals: [facility] [Outside] [facility] [Outside] - 11/23/17 4:15 pm (The above appointment is with for outpatient psychiatric assessment and medication management services. Please arrive 15 minutes early to complete paperwork. Please bring your insurance card, photo ID and medications in their original bottles. If you do not have insurance, bring proof of income to apply for the sliding fee scale. If you are unable to keep this appointment, 24 hour business notice of cancellation is expected. The above appointment(s) reflects first availability. You may contact the office regularly to check for cancellations that may allow you to be seen sooner.)
[2017-10-28] MEDS: traZODone 50 MG TABLET PO PRN (22:21)
[2017-10-28] MEDS: OLANZapine 10 MG TAB.RAPDIS PO SCH (22:21)
[2017-10-29] MEDS: OLANZapine 5 MG TAB.RAPDIS PO SCH (08:35)
--- NOTE | 2017-10-29 12:03 | Discharge Summary ---
Date of Encounter: 10/29/17 Time of Encounter: 11:40 Diagnosis - Discharge Diagnosis (1) Psychosis Status: Resolved Qualifiers: Psychosis type: unspecified psychosis type Qualified Code(s): F29 - Unspecified psychosis not due to a substance or known physiological condition (2) Major depressive disorder, recurrent, severe with psychotic features Status: Acute Medications - Discharge Medications Prescriptions: OLANZapine [Zyprexa Zydis] 10 mg PO HS 30 Days #30 tab.rapdis Benztropine [Cogentin] 1 mg PO DAILY #30 tab 06/17/17 [Rx] Buspirone HCl [Buspar] 5 mg PO TID 10/25/17 [History] OLANZapine [Zyprexa Zydis] 5 mg PO QAM tab.rapdis 10/29/17 [Rx] OLANZapine [Zyprexa Zydis] 10 mg PO HS 30 Days #30 tab.rapdis 10/29/17 [Rx] traZODone [TraZODone] 50 mg PO HS PRN tablet 10/29/17 [Rx] 3 Allergy/AdvReac Type Severity Reaction Status Date / Time sulfamethoxazole Allergy Hives Verified 10/25/17 14:14 [From Bactrim] trimethoprim [From Bactrim] Allergy Hives Verified 10/25/17 14:14 Provider Date of admission: 10/25/17 17:14 Primary care physician: PCP NONE Assessment and Plan - Patient/Caregiver Discharge Instructions Activity: resume usual activities as tolerated Diet: regular diet - Follow up Plan Follow up with: [facility] [Outside] - 11/15/17 11:00 am (The above appointment is with Tete Ervin for outpatient mental health counseling services.) [facility] [Outside] - 11/23/17 4:15 pm (The above appointment is with for outpatient psychiatric assessment and medication management services. Please arrive 15 minutes early to complete paperwork. Please bring your insurance card, photo ID and medications in their original bottles. If you do not have insurance, bring proof of income to apply for the sliding fee scale. If you are unable to keep this appointment, 24 hour business notice of cancellation is expected. The above appointment(s) reflects first availability. You may contact the office regularly to check for cancellations that may allow you to be seen sooner.) Functional capacity at discharge: independent ambulation Overall status at discharge: Stable Disposition: Home, Self-Care Hospital Course Hospital course: Mr. Orozco is a 27 year old male who tells me today "I slept really well last night. I feel really good." I talked with patient about his diagnosis at length. He acknowledges an issue with his mood and feeling depressed and it appears that the psychotic thought, in regards to hearing voices telling him to kill people and having thoughts of , occurs in direct relationship with his depression and when it gets worse. Otherwise, is not a predominant feature of his thought except when he gets anxious around a large group of people. He states that he is happy to be going to a new clinic to get his medication management completed. He had told the clinic, where he was going, about his increasing depression and the start of the thoughts. He did not feel that they heard him nor reacted appropriately in managing him. He states that the increase in Zyprexa has helped quite a bit. He is no longer having thoughts of , he is no longer having depressive ruminations, he is no longer having auditory or visual hallucinations. He denies any suicidal/homicidal ideation. He is more future oriented and feels hopeful about the future. He does talk about his frustration over finances. He is going to talk to someone at his new clinic about getting on social security disability to help out financially. 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 This will help him not worry about finances. Again, we talked further about his diagnosis and I believe his diagnosed more accurately to be major depressive disorder, recurrent, severe with psychotic features. I also discussed with him the possibility of having an autism spectrum disorder. I told him that I had spoken to his mom about it as well as talking to him about it and he agreed. He states that he is never fit in as a child; always socially awkward and never felt or reacted the same as other children. We have tried to arrange outpatient follow-up with neuropsychological testing agency to evaluate this further. He was pleased and thankful for that. Does patient wish to continue nicotine replacement upon disc: No (NA) - Time Spent with Patient Total time spent providing and/or coordinating discharge services: 25 min Less than 30 minutes Quality - Multiple Antipsychotics Patient discharged on 2 or more antipsychotic medications: No Procedures - Procedures Procedures: Medication Management, Crisis Stabilization, Supportive Therapy, Group Therapy, Psychoeducational Therapy Mental Status Exam - Mental Status Exam Patient orientation: Yes Person, Yes Time, Yes Place, Yes Circumstance Level of alertness: Alert Patient appearance: Appropriate, Well Groomed, Well-nourished Behavior: anxious (mildly) Psychomotor activity: Normal Eye contact: Maintains Eye Contact Mood description: Euthymic/stable Patient description of mood: Really good Affect description: congruent with mood Speech pattern: Monotone, Other (unusual pauses in pattern, monotone) Speech Volume: Normal Thought process: Intact, Logical, Linear, Goal Oriented Thought Content: Yes Intact Judgment: Good Insight: Partial
[2017-10-29 13:43] VITALS: BP 112/71
== END 2017-10-29 13:40 | disposition home or self-care (01) | DRG 885 ==
LOC: EMEROO 14:02 → 1ANU 17:14
PROVIDERS: ADMIT Psychiatry & Neurology Psychiatry; ATTEND Psychiatry & Neurology Psychiatry

== ENCOUNTER 2017-11-18 13:46 | Inpatient (IN) ==
[2017-11-18 14:25] LABS: Basophils % 0.3 %; Eosinophils # 0.1 K/mcL (0.0-0.6); Eosinophils % 1.4 %; Hematocrit 46.7 % (37.5-50.1); Hemoglobin 15.8 g/dL (12.9-16.9); Immature Granulocytes % 0.1 % (0-4); Lymphocytes # 1.2 K/mcL (0.6-4.6); Lymphocytes % 17.2 %; Mean Corpuscular HGB Conc 33.8 g/dL (31.6-35.5); Mean Corpuscular Volume 82.8 fL (83.0-100.0); Monocytes # 0.4 K/mcL (0.0-1.3); Monocytes % 6.1 %; Neutrophils # 5.4 K/mcL (1.6-8.9); Platelet Count 170 K/mcL (140-400); Red Blood Count 5.64 M/mcL (4.19-5.50); Red Cell Distribution Width 12.1 % (11.5-14.5); Segmented Neutrophils % 74.9 %
[2017-11-18 14:27] LABS: Bilirubin,Urine Negative (Negative); Blood,Urine Negative (Negative); Clarity,Urine Clear (Clear); Color,Urine Yellow (Yellow); Glucose,Urine (UA) Normal (Normal); Ketones,Urine Negative (Negative); Leukocyte Esterase,Urine Negative (Negative); Nitrite,Urine Negative (Negative); Protein,Urine Negative (Neg-Trace); Specific Gravity,Urine 1.019 (1.010-1.025); Urobilinogen,Urine Normal (Normal)
[2017-11-18 14:28] LABS: Amphetamine Screen,Urine Negative ng/mL (Cutoff=1000); Barbiturate Screen,Urine Negative ng/mL (Cutoff=200); Benzodiazepines Screen,Urine Negative ng/mL (Cutoff=200); Cannabinoid Screen,Urine Negative ng/mL (Cutoff = 50); Cocaine Screen,Urine Negative ng/mL (Cutoff= 300); Opiate Screen,Urine Negative ng/mL (Cutoff=300); Phencyclidine Screen,Urine Negative ng/mL (Cutoff=25)
[2017-11-18 14:38] LABS: BUN/Creatinine Ratio 10 (6-26); Blood Urea Nitrogen 11 mg/dL (6-20); Carbon Dioxide 27 mEq/L (23-29); Chloride 105 mEq/L (98-107); Glucose 89 mg/dL (70-105); Potassium 3.8 mEq/L (3.5-5.1); Sodium 142 mEq/L (136-145); eGFR For African Americans > 60 (> 60); eGFR For Non-African Americans > 60 (> 60)
[2017-11-18 14:39] LABS: Acetaminophen < 1.0 mcg/mL (10-30); Calcium 9.7 mg/dL (8.6-10.3); Ethanol < 10 mg/dL (0-10); Osmolality,Calculated 293 (280-300)
[2017-11-18 14:40] LABS: Salicylate < 5.0 mg/dL (15.0-30.0)
--- NOTE | 2017-11-18 14:41 | Emergency Department Note ---
Disposition Clinical Impression: Suicidal ideation, Homicidal ideation Disposition: Admitted As Inpatient Condition: Fair Time of Disposition: 14:42 Psych HPI - General Chief Complaint: ED Psychiatric Symptoms Stated Complaint: SI HI Time Seen by Provider: 11/18/17 13:48 Source: patient Mode of arrival: ambulatory Limitations: no limitations Nursing Notes Reviewed: Yes Vital Signs Reviewed: Yes - History of Present Illness HPI Narrative: 27-year-old male with history of depression as well as suicide and HI in the past reasons for evaluation of suicidal and homicidal ideations. Patient states he has had a plan to torture people as well as commit suicide on himself. Patient presents in the care of the mother states that this is part of his history has had required hospitalization for similar ideations. Patient denies any visual or auditory stimulation. Patient denies any drugs or alcohol use. Patient states even taking his medications as directed. - Related Data Home Medications Medication Instructions Recorded Confirmed Buspirone HCl [Buspar] 5 mg PO TID 10/25/17 11/18/17 Previous Rx's Medication Instructions Recorded Benztropine [Cogentin] 1 mg PO DAILY #30 tab 06/17/17 OLANZapine [Zyprexa Zydis] 5 mg PO QAM tab.rapdis 10/29/17 OLANZapine [Zyprexa Zydis] 10 mg PO HS 30 Days #30 tab.rapdis 10/29/17 traZODone [TraZODone] 50 mg PO HS PRN tablet 10/29/17 Allergies Allergy/AdvReac Type Severity Reaction Status Date / Time sulfamethoxazole Allergy Hives Verified 11/18/17 13:49 [From Bactrim] trimethoprim [From Bactrim] Allergy Hives Verified 11/18/17 13:49 All systems ED: reviewed and negative except as stated. Constitutional: Reports: as per HPI. Denies: fever Eyes: Reports: as per HPI ENT ED: Reports: as per HPI Cardiovascular: Reports: as per HPI. Denies: chest pain Respiratory: Reports: as per HPI. Denies: cough, dyspnea Gastrointestinal: Reports: as per HPI. Denies: abdominal pain, nausea, vomiting Genitourinary: Reports: as per HPI Musculoskeletal: Reports: as per HPI Integumentary: Reports: as per HPI Neurological: Reports: as per HPI Psychiatric: Reports: as per HPI Endocrine: Reports: as per HPI Hematological/Lymphatic: Reports: as per HPI Past Medical History - Past Medical History Source: patient, obtained from family Medical history: Reports: asthma, renal disease, other Psychiatric history: Reports: prior suicide attempt, previous psychiatric hospitalization, other - Social History Smoking Status: Never smoker Smokeless Tobacco Status: No Alcohol use: Reports: none Drug use: Reports: none Physical Exam - General Limitations: no limitations General appearance: alert, in no apparent distress - Head Head exam: atraumatic, normocephalic, normal inspection - Eye Eye exam: Present: normal appearance, PERRL, EOMI - ENT ENT exam: normal exam, normal oropharynx, mucous membranes moist - Neck Neck exam: Present: normal inspection, full ROM, trachea midline - Chest Chest inspection: Present: normal inspection, symmetric chest wall rise - Respiratory Respiratory exam: Present: normal lung sounds bilaterally. Absent: respiratory distress - Cardiovascular Cardiovascular exam: Present: regular rate, normal rhythm - Abdominal Exam Abdominal exam: Present: soft, Non-Tender - Extremities Exam Extremities exam: Present: normal inspection. Absent: pedal edema - Back Exam Back exam: Present: normal inspection - Neurological Exam Neurological exam: Present: alert, oriented X3, CN II-XII intact - Psychiatric Psychiatric exam: Present: flat affect - Skin Skin exam: Present: warm, dry, intact, normal color Course Course Narrative: Patient will require medical clearance and evaluated by psychiatry Vital Signs Temperature 98.9 F 11/18/17 13:49 Pulse Rate 100 11/18/17 13:49 Respiratory Rate 20 11/18/17 13:49 Blood Pressure 127/91 11/18/17 13:49 O2 Sat by Pulse Oximetry 99 11/18/17 13:49 Temperature 97.6 F 11/18/17 19:33 Pulse Rate 76 11/18/17 19:33 Respiratory Rate 14 11/18/17 19:33 Blood Pressure 122/89 11/18/17 19:33 O2 Sat by Pulse Oximetry 99 11/18/17 13:49 Oxygen Delivery Oxygen Delivery Room Air Psych - Lab Data Result diagrams: 11/18/17 14:15 11/18/17 14:15 Lab Results 11/18/17 11/18/17 11/18/17 Range/Units 14:05 14:05 14:15 WBC 7.2 (4.3-11.1) K/mcL RBC 5.64 H (4.19-5.50) M/mcL Hgb 15.8 (12.9-16.9) g/dL Hct 46.7 (37.5-50.1) % MCV 82.8 L (83.0-100.0) fL MCH 28.0 (28.0-33.3) pg MCHC 33.8 (31.6-35.5) g/dL RDW 12.1 (11.5-14.5) % Plt Count 170 (140-400) K/mcL MPV 10.0 (9.4-12.4) fL Immature Gran % 0.1 (0-4) % Seg Neutrophils % 74.9 % Lymphocytes % 17.2 % Monocytes % 6.1 % Eosinophils % 1.4 % Basophils % 0.3 % Neutrophils # 5.4 (1.6-8.9) K/mcL Lymphocytes # 1.2 (0.6-4.6) K/mcL Monocytes # 0.4 (0.0-1.3) K/mcL Eosinophils # 0.1 (0.0-0.6) K/mcL Basophils # 0.0 (0.0-0.2) K/mcL Sodium (136-145) mEq/L Potassium (3.5-5.1) mEq/L Chloride (98-107) mEq/L Carbon Dioxide (23-29) mEq/L BUN (6-20) mg/dL Creatinine (0.70-1.30) mg/dL Est GFR ( Amer) (> 60) Est GFR (Non-Af Amer) (> 60) BUN/Creatinine Ratio (6-26) Glucose (70-105) mg/dL Calculated Osmolality (280-300) Calcium (8.6-10.3) mg/dL Urine Color Yellow (Yellow) Urine Clarity Clear (Clear) Urine pH 7.0 (5.0-8.0) pH Units Ur Specific [place] 1.019 (1.010-1.025) Urine Protein Negative (Neg-Trace) mg/dL Urine Glucose (UA) Normal (Normal) mg/dL Urine Ketones Negative (Negative) mg/dL Urine Blood Negative (Negative) Urine Nitrite Negative (Negative) Urine Bilirubin Negative (Negative) Urine Urobilinogen Normal (Normal) mg/dL Ur Leukocyte Esterase Negative (Negative) Salicylates (15.0-30.0) mg/dL Urine Opiates Screen Negative (Sqinyf=578) ng/mL Acetaminophen (10-30) mcg/mL Ur Barbiturates Screen Negative (Ttddnr=786) ng/mL Ur Phencyclidine Scrn Negative (Cutoff=25) ng/mL Ur Amphetamines Screen Negative (Bwnnal=2357) ng/mL U Benzodiazepines Scrn Negative (Cxxgbp=433) ng/mL Urine Cocaine Screen Negative (Cutoff= 300) ng/mL U Marijuana (THC) Screen Negative (Cutoff = 50) ng/mL Ethyl Alcohol (0-10) mg/dL 11/18/17 Range/Units 14:15 WBC (4.3-11.1) K/mcL RBC (4.19-5.50) M/mcL Hgb (12.9-16.9) g/dL Hct (37.5-50.1) % MCV (83.0-100.0) fL MCH (28.0-33.3) pg MCHC (31.6-35.5) g/dL RDW (11.5-14.5) % Plt Count (140-400) K/mcL MPV (9.4-12.4) fL Immature Gran % (0-4) % Seg Neutrophils % % Lymphocytes % % Monocytes % % Eosinophils % % Basophils % % Neutrophils # (1.6-8.9) K/mcL Lymphocytes # (0.6-4.6) K/mcL Monocytes # (0.0-1.3) K/mcL Eosinophils # (0.0-0.6) K/mcL Basophils # (0.0-0.2) K/mcL Sodium 142 (136-145) mEq/L Potassium 3.8 (3.5-5.1) mEq/L Chloride 105 (98-107) mEq/L Carbon Dioxide 27 (23-29) mEq/L BUN 11 (6-20) mg/dL Creatinine 1.12 (0.70-1.30) mg/dL Est GFR ( Amer) > 60 (> 60) Est GFR (Non-Af Amer) > 60 (> 60) BUN/Creatinine Ratio 10 (6-26) Glucose 89 (70-105) mg/dL Calculated Osmolality 293 (280-300) Calcium 9.7 (8.6-10.3) mg/dL Urine Color (Yellow) Urine Clarity (Clear) Urine pH (5.0-8.0) pH Units Ur Specific [place] (1.010-1.025) Urine Protein (Neg-Trace) mg/dL Urine Glucose (UA) (Normal) mg/dL Urine Ketones (Negative) mg/dL Urine Blood (Negative) Urine Nitrite (Negative) Urine Bilirubin (Negative) Urine Urobilinogen (Normal) mg/dL Ur Leukocyte Esterase (Negative) Salicylates < 5.0 L (15.0-30.0) mg/dL Urine Opiates Screen (Fzjznt=549) ng/mL Acetaminophen < 1.0 L (10-30) mcg/mL Ur Barbiturates Screen (Fcajgj=975) ng/mL Ur Phencyclidine Scrn (Cutoff=25) ng/mL Ur Amphetamines Screen (Blixlf=7880) ng/mL U Benzodiazepines Scrn (Falssg=226) ng/mL Urine Cocaine Screen (Cutoff= 300) ng/mL U Marijuana (THC) Screen (Cutoff = 50) ng/mL Ethyl Alcohol < 10 (0-10) mg/dL Psychiatric Medical Clearance - Medical Clearance Checklist Does the patient have a NEW psychiatric condition?: No Any abnormalities indicating possible medical illness?: No Any history of medical issues?: No Medical History: Homicidal ideation (Acute) Psychosis (Resolved) Depression (Acute) Suicidal ideation (Acute) Major depressive disorder, recurrent, severe with psychotic features (Acute) No Social History Section defined Any abnormal vital signs prior to transfer?: No Current Vitals: Last Vital Signs Temp 97.6 F 11/18/17 19:33 Pulse 76 11/18/17 19:33 Resp 14 11/18/17 19:33 BP 122/89 11/18/17 19:33 Pulse Ox 99 11/18/17 13:49 Is the patient intoxicated or cognitively impaired?: No Psychiatric Lab Panel: Drug Levels and Toxicity 11/18/17 11/18/17 14:05 14:15 Urine Opiates Screen Negative Acetaminophen < 1.0 L Ur Barbiturates Screen Negative Ur Phencyclidine Scrn Negative Ur Amphetamines Screen Negative U Benzodiazepines Scrn Negative Urine Cocaine Screen Negative U Marijuana (THC) Screen Negative Ethyl Alcohol < 10 Any abnormalities on the physical exam?: No Any abnormal labs?: No Abnormal Labs: Abnormal lab results RBC 5.64 M/mcL (4.19-5.50) H 11/18/17 14:15 MCV 82.8 fL (83.0-100.0) L 11/18/17 14:15 Salicylates < 5.0 mg/dL (15.0-30.0) L 11/18/17 14:15 Acetaminophen < 1.0 mcg/mL (10-30) L 11/18/17 14:15 Does the patient require durable medical equiptment?: No Is the patient ambulatory?: No Is the patient a fall risk?: No Has the patient been medically cleared?: Yes Any acute medical condition require Tx prior to transfer?: No Attestation Statement - Attestation Attestation: I, Rickey Burk, examined this patient and my medical decision-making was reviewed with the CONTINUOUS STILL OPERATOR/PA/Advanced Practice Nurse/Resident Physician. I agree with the documented findings, disposition and treatment plan as described except to the extent set forth below. 27-year-old male presents emergency Department with concerns of suicidal ideation. He also states he had thoughts about torturing others prior to committing suicide. Patient was medically cleared emergency department and he will be the evaluated by behavioral health.
[2017-11-18] MEDS ORDERED: Acetaminophen 325 MG TABLET PO ONE (17:26)
[2017-11-18] MEDS ORDERED: Haloperidol Lactate 5 MG/ML VIAL IM PRN (19:26)
[2017-11-18] MEDS ORDERED: *HR* LORazepam 2 MG/ML VIAL IM PRN (19:26)
[2017-11-18] MEDS ORDERED: MOM Conc 10 ML UD.LIQ PO PRN (19:26)
[2017-11-18] MEDS ORDERED: *HR* LORazepam 1 MG TABLET PO PRN (19:26)
[2017-11-18] MEDS ORDERED: hydrOXYzine pamoate 25 MG CAPSULE PO PRN (19:26)
[2017-11-18] MEDS ORDERED: Mag Hydrox/Al Hydrox/Simeth 30 ML UDC PO PRN (19:26)
[2017-11-18] MEDS ORDERED: Acetaminophen 325 MG TABLET PO PRN (19:26)
[2017-11-18] MEDS: traZODone 50 MG TABLET PO PRN (21:23)
[2017-11-18] MEDS: OLANZapine 10 MG TAB.RAPDIS PO SCH (21:23)
[2017-11-19] MEDS: OLANZapine 5 MG TAB.RAPDIS PO SCH (08:47)
--- NOTE | 2017-11-19 14:23 | Psychiatry History & Physical ---
Date of Encounter: 11/19/17 Time of Encounter: 14:00 History of Present Illness Patient Stated Chief Complaint: "I couldn't do it." Medicare Admission Attestation: For traditional Medicare patients the provided hospital inpatient services are reasonable and necessary and in the case of services not specified as inpatient -only under 42 CFR 419.22 (n), that they are appropriately provided as inpatient services in accordance 42 CFR 412.3. For Critical Access Hospital the patient may reasonably be expected to be discharged or transferred to a hospital within 96 hours after admission to the Critical Access Hospital. Admitted From: Emergency Dept Plans for Post Hospital Care: Home History of Present Illness: Mr. Orozco is a 27 year old male who was readmitted to the psychiatric unit approximately 2 weeks after having been here in early October. (See October 26, 2017 H&P) Patient states that he tried to go back to work at [employer] where he had worked for 7 years.. He states that he was feeling so anxious and nervous around people that he ended up leaving. He states that he told his therapist about these facts yesterday, and the fact that he was having thoughts of hurting himself and again seeing large crowds of people . She told him to come to the emergency room to be admitted. He states he is not been taking his BuSpar as he does not find it helpful. He has a hard time feeling physically comfortable. He is anxious all the time and wants to talk about getting back on his Paxil. He had taken Paxil for an extended period of time targeting his depression and anxiety, previously. I explained to him that the anxiety could potentially be a side effect of the Zyprexa, which we talked about before. He had started Cogentin in the evening and I advised him to give the trial of taking Cogentin during the day to see if that helped decrease his underlying frustration and anxious feeling. He was agreeable to doing this. He denies any active thoughts of wanting to kill himself or anybody else at this time. He states is very frustrated and continues to worry about finances and feels that he is a failure. And this feeling he is a failure makes him have thoughts of wanting to kill himself. Past Med Surg Social Fam HX - Past Medical History Medical history: asthma, renal disease, other - Past Psychiatric History Psychiatric history: Reports: depression, prior suicide attempt, previous psychiatric hospitalization Family psychiatric history: Yes Family History of Suicide: None - Social History Smoking Status: Never smoker Smokeless Tobacco Status: No Alcohol use: none Drug use: none Occupational status: employed Current living situation: Home - Independent Activity Level: Independent ambulation Recent Out of Country Travel Within the Last 8 Weeks: No Exposure or Possible Exposure to Illness During Travel: No Medications & Allergies Benztropine [Cogentin] 1 mg PO DAILY #30 tab 06/17/17 [Rx] Buspirone HCl [Buspar] 5 mg PO TID 10/25/17 [History] OLANZapine [Zyprexa Zydis] 5 mg PO QAM tab.rapdis 10/29/17 [Rx] OLANZapine [Zyprexa Zydis] 10 mg PO HS 30 Days #30 tab.rapdis 10/29/17 [Rx] traZODone [TraZODone] 50 mg PO HS PRN tablet 10/29/17 [Rx] 3 Allergy/AdvReac Type Severity Reaction Status Date / Time sulfamethoxazole Allergy Hives Verified 11/18/17 13:49 [From Bactrim] trimethoprim [From Bactrim] Allergy Hives Verified 11/18/17 13:49 Mental Status Exam Patient orientation: Yes Person, Yes Time, Yes Place, Yes Circumstance Level of alertness: Sedated Patient appearance: Unkempt Behavior: anxious Psychomotor activity: Slowed Eye contact: Maintains Eye Contact Mood description: Anxious Affect description: congruent with mood Speech pattern: Normal rate, Normal rhythm, Normal tone Speech volume: Normal Thought process: Goal Oriented Thought content: Yes Intact Attention span: Capable of Focused Attention Memory description: Grossly Intact Patient reliability: Reliable Historian Intelligence estimate: Average Judgment: Fair Insight: Partial Exam - HEENT Head exam IM: Present: atraumatic Results - Vital Signs Vital signs: Temp Pulse Resp BP Pulse Ox 97.6 F 114 16 141/98 99 11/19/17 09:00 11/19/17 09:00 11/19/17 09:00 11/19/17 09:00 11/18/17 13:49 - Labs Labs: Laboratory Last Values WBC 7.2 K/mcL (4.3-11.1) 11/18/17 14:15 RBC 5.64 M/mcL (4.19-5.50) H 11/18/17 14:15 Hgb 15.8 g/dL (12.9-16.9) 11/18/17 14:15 Hct 46.7 % (37.5-50.1) 11/18/17 14:15 MCV 82.8 fL (83.0-100.0) L 11/18/17 14:15 MCH 28.0 pg (28.0-33.3) 11/18/17 14:15 MCHC 33.8 g/dL (31.6-35.5) 11/18/17 14:15 RDW 12.1 % (11.5-14.5) 11/18/17 14:15 Plt Count 170 K/mcL (140-400) 11/18/17 14:15 MPV 10.0 fL (9.4-12.4) 11/18/17 14:15 Immature Gran % 0.1 % (0-4) 11/18/17 14:15 Seg Neutrophils % 74.9 % 11/18/17 14:15 Lymphocytes % 17.2 % 11/18/17 14:15 Monocytes % 6.1 % 11/18/17 14:15 Eosinophils % 1.4 % 11/18/17 14:15 Basophils % 0.3 % 11/18/17 14:15 Neutrophils # 5.4 K/mcL (1.6-8.9) 11/18/17 14:15 Lymphocytes # 1.2 K/mcL (0.6-4.6) 11/18/17 14:15 Monocytes # 0.4 K/mcL (0.0-1.3) 11/18/17 14:15 Eosinophils # 0.1 K/mcL (0.0-0.6) 11/18/17 14:15 Basophils # 0.0 K/mcL (0.0-0.2) 11/18/17 14:15 Sodium 142 mEq/L (136-145) 11/18/17 14:15 Potassium 3.8 mEq/L (3.5-5.1) 11/18/17 14:15 Chloride 105 mEq/L (98-107) 11/18/17 14:15 Carbon Dioxide 27 mEq/L (23-29) 11/18/17 14:15 BUN 11 mg/dL (6-20) 11/18/17 14:15 Creatinine 1.12 mg/dL (0.70-1.30) 11/18/17 14:15 Est GFR ( Amer) > 60 (> 60) 11/18/17 14:15 Est GFR (Non-Af Amer) > 60 (> 60) 11/18/17 14:15 BUN/Creatinine Ratio 10 (6-26) 11/18/17 14:15 Glucose 89 mg/dL (70-105) 11/18/17 14:15 Calculated Osmolality 293 (280-300) 11/18/17 14:15 Calcium 9.7 mg/dL (8.6-10.3) 11/18/17 14:15 Urine Color Yellow (Yellow) 11/18/17 14:05 Urine Clarity Clear (Clear) 11/18/17 14:05 Urine pH 7.0 pH Units (5.0-8.0) 11/18/17 14:05 Ur Specific [place] 1.019 (1.010-1.025) 11/18/17 14:05 Urine Protein Negative mg/dL (Neg-Trace) 11/18/17 14:05 Urine Glucose (UA) Normal mg/dL (Normal) 11/18/17 14:05 Urine Ketones Negative mg/dL (Negative) 11/18/17 14:05 Urine Blood Negative (Negative) 11/18/17 14:05 Urine Nitrite Negative (Negative) 11/18/17 14:05 Urine Bilirubin Negative (Negative) 11/18/17 14:05 Urine Urobilinogen Normal mg/dL (Normal) 11/18/17 14:05 Ur Leukocyte Esterase Negative (Negative) 11/18/17 14:05 Salicylates < 5.0 mg/dL (15.0-30.0) L 11/18/17 14:15 Urine Opiates Screen Negative ng/mL (Nsggjx=300) 11/18/17 14:05 Acetaminophen < 1.0 mcg/mL (10-30) L 11/18/17 14:15 Ur Barbiturates Screen Negative ng/mL (Cazpue=054) 11/18/17 14:05 Ur Phencyclidine Scrn Negative ng/mL (Cutoff=25) 11/18/17 14:05 Ur Amphetamines Screen Negative ng/mL (Hutyti=0017) 11/18/17 14:05 U Benzodiazepines Scrn Negative ng/mL (Awnxnw=698) 11/18/17 14:05 Urine Cocaine Screen Negative ng/mL (Cutoff= 300) 11/18/17 14:05 U Marijuana (THC) Screen Negative ng/mL (Cutoff = 50) 11/18/17 14:05 Ethyl Alcohol < 10 mg/dL (0-10) 11/18/17 14:15 Assessment and Plan (1) Major depressive disorder, recurrent, severe with psychotic features Current visit: No Status: Acute Plan: Admit inpatient for safety and stabilization, Suicide Precautions per unit protocol, Encourage participation in unit milieu, Group Therapy, Monitor sleep Risks, benefits, side effects, alternatives discussed w/pt: Yes (Start Paxil 20 mg po qd, D/C Buspar, add cogentin) Patient agreeable to treatment: Yes Plans for Post Hospital Care: Home Estimated Length of Stay (Days): 7
[2017-11-19] MEDS: OLANZapine 10 MG TAB.RAPDIS PO SCH (20:33)
[2017-11-19] MEDS: traZODone 50 MG TABLET PO PRN (20:33)
[2017-11-20] MEDS: OLANZapine 5 MG TAB.RAPDIS PO SCH (08:50)
--- NOTE | 2017-11-20 13:24 | Psychiatry Progress Note ---
Date of Encounter: 11/20/17 Time of Encounter: 13:15 Subjective Interval history: Patient was willing to come out of his room to talk to me. He came down to my office. I asked him how he was doing and he stated "pretty good". He denied any side effects of restarting the Paxil. He states that it is cold in his room , but he stays covered up underneath the blankets to stay warm. I asked him if he needed any extra clothing or covering, he stated "no, the blankets helped just fine". He told me that he slept proximally 10 hours the night before without nightmare or difficulty. He told me that he is eating fine. He states that he is feeling calmer. Denies side effects of any of the other medications. He denies any suicidal homicidal ideation. He denies any auditory or visual hallucinations. He denies any intrusive thoughts of people dying or mass murders which had previously been an issue that he reported to his outpatient psychologist. He denied any safety issues on the unit. He was encouraged to participate on the unit and interact as he could with staff and other patients. He said he would try. Objective: Exam Patient orientation: Yes Person, Yes Time, Yes Place, Yes Circumstance Level of alertness: Sedated (mildy) Patient appearance: Appropriate, Well Groomed Behavior: anxious Psychomotor activity: Normal Eye contact: Maintains Eye Contact Mood description: Depressed Affect description: congruent with mood Speech pattern: Normal rate, Normal rhythm, Monotone Speech volume: Normal Thought process: Intact, Linear Thought content: Yes Intact Judgment: Fair Insight: Partial Results - Vital Signs Vital Signs: Temp Pulse Resp BP Pulse Ox 99.0 F 75 16 131/75 99 11/20/17 09:00 11/20/17 09:00 11/20/17 09:00 11/20/17 09:00 11/18/17 13:49 Assessment and Plan (1) Major depressive disorder, recurrent, severe with psychotic features Current visit: No Status: Acute Plan: Continue hospitalization, Close observation, Suicide Precautions per unit protocol, Encourage participation in unit milieu, Group Therapy, Monitor sleep, Monitor appetite Risks, benefits, side effects, alternatives discussed w/pt: Yes (Continue Paxil 20 mg po qd and AM Cogentin) Patient agreeable to treatment: Yes Consult Discharge Plan - Plan Referrals: [facility] [employer] [facility] [place] [Outside] - 11/23/17 4:15 pm (The above appointment is with Dr. Mayra Sy for outpatient psychiatric assessment and medication management services. Please arrive 15 minutes early to complete paperwork. Please bring your insurance card, photo ID and medications in their original bottles. If you do not have insurance, bring proof of income to apply for the sliding fee scale. If you are unable to keep this appointment, 24 hour business notice of cancellation is expected. The above appointment(s) reflects first availability. You may contact the office regularly to check for cancellations that may allow you to be seen sooner.)
[2017-11-20] MEDS: OLANZapine 10 MG TAB.RAPDIS PO SCH (20:40)
[2017-11-20] MEDS: traZODone 50 MG TABLET PO PRN (20:40)
[2017-11-21] MEDS: OLANZapine 5 MG TAB.RAPDIS PO SCH (08:37)
--- NOTE | 2017-11-21 13:54 | Psychiatry Progress Note ---
Date of Encounter: 11/21/17 Time of Encounter: 13:30 Subjective Interval history: "I'm pretty good." He states he is sleeping fine. He denies any suicidal/ homicidal ideation. He is not having intrusive thoughts about killing people or people dying. No auditory or visual hallucinations. He feels hopeful having started the Paxil and has noticed a decrease in his anxiety. He does not feel drugged out or slow on the Paxil. He feels better and more hopefully. He is concerned about going back to his job and failing again. Not sure he could handle the rejection. He is hopeful he will get disability to help him out financially and give him relief from his stress. Objective: Exam Patient orientation: Yes Person, Yes Time, Yes Place, Yes Circumstance Level of alertness: Alert Patient appearance: Appropriate Behavior: anxious (mildly) Psychomotor activity: Normal Eye contact: Intense Contact Mood description: Depressed Affect description: congruent with mood Speech pattern: Normal rate, Normal rhythm, Normal tone Speech volume: Normal Thought process: Linear Judgment: Fair Insight: Partial Results - Vital Signs Vital Signs: Temp Pulse Resp BP Pulse Ox 97.8 F 83 16 140/97 99 11/21/17 08:48 11/21/17 08:48 11/21/17 08:48 11/21/17 08:48 11/18/17 13:49 Assessment and Plan (1) Major depressive disorder, recurrent, severe with psychotic features Current visit: No Status: Acute Plan: Continue hospitalization, Close observation, Suicide Precautions per unit protocol, Encourage participation in unit milieu, Group Therapy, Monitor sleep Risks, benefits, side effects, alternatives discussed w/pt: Yes (Continue Paxil 20 mg po qd and AM Cogentin) Patient agreeable to treatment: Yes Consult Discharge Plan - Plan Referrals: [facility] [Outside] - 11/23/17 4:15 pm (The above appointment is with Dr. Mayra Sy for outpatient psychiatric assessment and medication management services. Please arrive 15 minutes early to complete paperwork. Please bring your insurance card, photo ID and medications in their original bottles. If you do not have insurance, bring proof of income to apply for the sliding fee scale. If you are unable to keep this appointment, 24 hour business notice of cancellation is expected. The above appointment(s) reflects first availability. You may contact the office regularly to check for cancellations that may allow you to be seen sooner.)
[2017-11-21] MEDS: OLANZapine 10 MG TAB.RAPDIS PO SCH (20:17)
[2017-11-21] MEDS: traZODone 50 MG TABLET PO PRN (20:17)
[2017-11-22] MEDS: OLANZapine 5 MG TAB.RAPDIS PO SCH (09:06)
--- NOTE | 2017-11-22 12:36 | Psychiatry Progress Note ---
Date of Encounter: 11/22/17 Time of Encounter: 12:30 Subjective Interval history: When I met with the patient today he denied having any side effects of his medications and told me that he was feeling "pretty good". He denied having any more anxiety like he was having upon admission. He still is frustrated about his financial/job situation, but it is not obsessing about it. He is able to relax with it. He denies any thoughts of hurting himself or anybody else. He denies any intrusive thoughts about . He denies any auditory or visual hallucinations. He states he sleeping well and eating well. He states he feels a little slow and foggy at times since starting the Paxil, but is able to maintain conversation and able to focus without an issue. He is interacting and socializing on the unit with peers and staff. Objective: Exam Patient orientation: Yes Person, Yes Time, Yes Place, Yes Circumstance Level of alertness: Alert Patient appearance: Appropriate, Well Groomed, Well-nourished Behavior: calm Psychomotor activity: Normal Eye contact: Maintains Eye Contact Mood description: Euthymic/stable Patient description of mood: "pretty good" Affect description: congruent with mood Speech pattern: Normal rate, Normal rhythm, Monotone Speech volume: Normal Thought process: Intact, Linear, Goal Oriented Thought content: Yes Intact Judgment: Good Insight: Full Results - Vital Signs Vital Signs: Temp Pulse Resp BP Pulse Ox 97.6 F 77 18 139/87 99 11/22/17 09:00 11/22/17 09:00 11/22/17 09:00 11/22/17 09:00 11/18/17 13:49 Assessment and Plan (1) Major depressive disorder, recurrent, severe with psychotic features Current visit: No Status: Acute Plan: Continue hospitalization, Close observation, Group Therapy, Monitor sleep Risks, benefits, side effects, alternatives discussed w/pt: Yes (Continue Paxil 20 mg po qd and AM Cogentin) Patient agreeable to treatment: Yes Consult Discharge Plan - Plan Referrals: Satish Boykin [facility] [Outside] - 11/23/17 4:15 pm (The above appointment is with Dr. Mayra Sy for outpatient psychiatric assessment and medication management services. Please arrive 15 minutes early to complete paperwork. Please bring your insurance card, photo ID and medications in their original bottles. If you do not have insurance, bring proof of income to apply for the sliding fee scale. If you are unable to keep this appointment, 24 hour business notice of cancellation is expected. The above appointment(s) reflects first availability. You may contact the office regularly to check for cancellations that may allow you to be seen sooner.)
[2017-11-22] MEDS: traZODone 50 MG TABLET PO PRN (20:59)
[2017-11-22] MEDS: OLANZapine 10 MG TAB.RAPDIS PO SCH (20:59)
[2017-11-23] MEDS: OLANZapine 5 MG TAB.RAPDIS PO SCH (08:45)
[2017-11-23 09:23] VITALS: BP 124/86
--- NOTE | 2017-11-23 10:09 | Discharge Summary ---
Date of Encounter: 11/23/17 Time of Encounter: 09:55 Diagnosis - Discharge Diagnosis (1) Major depressive disorder, recurrent, severe with psychotic features Status: Acute Medications - Discharge Medications Prescriptions: Benztropine [Cogentin] 1 mg PO BID 30 Days #60 tablet OLANZapine [Zyprexa Zydis] 10 mg PO HS #30 tab.rapdis OLANZapine [Zyprexa Zydis] 5 mg PO QAM 30 Days #30 tab.rapdis Paroxetine [Paxil] 20 mg PO DAILY 30 Days #30 tablet OLANZapine [Zyprexa Zydis] 5 mg PO QAM tab.rapdis 10/29/17 [Rx] OLANZapine [Zyprexa Zydis] 10 mg PO HS 30 Days #30 tab.rapdis 10/29/17 [Rx] traZODone [TraZODone] 50 mg PO HS PRN tablet 10/29/17 [Rx] Benztropine [Cogentin] 1 mg PO BID 30 Days #60 tablet 11/23/17 [Rx] OLANZapine [Zyprexa Zydis] 5 mg PO QAM 30 Days #30 tab.rapdis 11/23/17 [Rx] OLANZapine [Zyprexa Zydis] 10 mg PO HS #30 tab.rapdis 11/23/17 [Rx] Paroxetine [Paxil] 20 mg PO DAILY 30 Days #30 tablet 11/23/17 [Rx] traZODone [TraZODone] 50 mg PO HS PRN #0 tablet 11/23/17 [Rx] 3 Allergy/AdvReac Type Severity Reaction Status Date / Time sulfamethoxazole Allergy Hives Verified 11/18/17 13:49 [From Bactrim] trimethoprim [From Bactrim] Allergy Hives Verified 11/18/17 13:49 Provider Date of admission: 11/18/17 19:24 Primary care physician: PCP NONE Assessment and Plan - Patient/Caregiver Discharge Instructions Activity: resume usual activities as tolerated Diet: regular diet - Follow up Plan Follow up with: [facility] [Outside] - 12/09/17 9:00 am (The above appointment is with Annie Herrera for mental health counseling services. Please arrive 10 minutes early to complete the check-in process. Please bring your insurance card (or HCAP award letter) and photo ID. If you are unable to keep this appointment, 24 hour business notice of cancellation is expected. If you miss your new patient appointment without providing appropriate notice, you cannot be re-scheduled. The above appointment(s) reflects first availability. You may contact the office regularly to check for cancellations that may allow you to be seen sooner. The [facility] is the 1st building behind [facility] in [place], [place]. Please do not use GPS or mapping apps to locate the office, as they will take you to the wrong location. ) [place] [facility] [Outside] - 11/23/17 4:15 pm (The above appointment is with Dr. Mayra Sy for outpatient psychiatric assessment and medication management services. Please arrive 15 minutes early to complete paperwork. Please bring your insurance card, photo ID and medications in their original bottles. If you do not have insurance, bring proof of income to apply for the sliding fee scale. If you are unable to keep this appointment, 24 hour business notice of cancellation is expected. The above appointment(s) reflects first availability. You may contact the office regularly to check for cancellations that may allow you to be seen sooner.) Functional capacity at discharge: independent ambulation Overall status at discharge: Stable Disposition: Home, Self-Care Hospital Course Hospital course: Mr. Orozco is a 27 year old male who is known to this unit and treatment team. His psychologist encouraged him to come to the hospital to be admitted after their initial session. Patient had been feeling depressed again and anxious after starting another job at [employer] and feeling like he could not do it. He once again had thoughts of dying and mass killing, but no intent. He was depressed and wanting to restart his anti-anxiety/anti-depressant Paxil that he felt had helped him before. After restarting the Paxil, he felt relief and hopeful. He denied any adverse side effects and stated he was not feeling as depressed or anxious after 2-3 days. He started coming out of his room and was not having any auditory hallucination. He was interacting on the unit more and coming out to groups. He was noted to be social and was more relaxed and comfortable. He denied SI/SIB/HI. No thoughts or mass murder. He was looking forward to see anew therapist and was hopeful that restarting the Paxil would continue to help him remain stable after discharge. Does patient wish to continue nicotine replacement upon disc: No (NA) - Time Spent with Patient Total time spent providing and/or coordinating discharge services: 20 min Less than 30 minutes Quality - Multiple Antipsychotics Patient discharged on 2 or more antipsychotic medications: No Procedures - Procedures Procedures: Medication Management, Crisis Stabilization, Supportive Therapy, Group Therapy, Psychoeducational Therapy Mental Status Exam - Mental Status Exam Patient orientation: Yes Person, Yes Time, Yes Place, Yes Circumstance Level of alertness: Alert Patient appearance: Appropriate, Well Groomed, Well-nourished Behavior: calm, cooperative Psychomotor activity: Normal Eye contact: Maintains Eye Contact Mood description: Euthymic/stable Patient description of mood: Good Affect description: congruent with mood Speech pattern: Normal rate, Normal rhythm, Monotone Speech Volume: Normal Thought process: Intact, Logical, Linear, Goal Oriented Thought Content: Yes Intact Judgment: Good Insight: Full
== END 2017-11-23 11:53 | disposition home or self-care (01) | DRG 885 ==
LOC: EMEROO 13:46 → 1ANU 19:24
PROVIDERS: ADMIT Psychiatry & Neurology Psychiatry; ATTEND Psychiatry & Neurology Psychiatry